=== PATIENT | female | born 1995 ===

== ENCOUNTER 2024-07-29 23:58 | Emergency (ER) | payer OTHER, SELFPAY ==
--- NOTE | ~2024-07-29 | CT_ITS ---
CT of the Abdomen and Pelvis: Indication: Abdominal pain Technique: 2.5 mm axial scans were obtained through the abdomen and pelvis following intravenous adm inistration of 100 cc of Omnipaque 350. Dose reduction technique was used on this scan by utilizing a utomated exposure control and iterative reconstruction technique. The dose-length product (DLP) was 1 90.48 mGy-cm. Findings: Scans through the lung bases are unremarkable. The liver, spleen, pancreas, gallbladder, adrenals and kidneys are within normal limits. No evidence of aortic aneurysm. No lymphadenopathy. No bowel obstruction or bowel wall thickening. There is no evidence to suggest acute appendicitis. Images through the pelvis were performed. Urinary bladder unremarkable. Probable small uterine fibroi d present. Trace free fluid present in the pelvis. Impression: No definite acute abnormality. Probable small uterine fibroid. Trace free fluid in the pelvis. Reviewed, dictated and finalized at [facility]. STANT MEDIA PLANNER Impression: No definite acute abnormality. Probable small uterine fibroid. Trace free fluid in the pelvis.
[2024-07-30] VITALS (11 sets, daily range): BP systolic 96–118; BP diastolic 70–82; PULSE 60–102; RESP 12–21; TEMP 36.6; O2SAT 97–100
--- NOTE | 2024-07-30 00:16 | ECG_ITS ---
Test Date: 2024-07-30 00:40:40 Measurements Intervals [place] Rate: 75 P: 55 TN: 162 QRS: 41 QRSD: 74 T: 19 QT: 347 QTc: 388 Interpretive Statements SINUS RHYTHM No previous ECG available for comparison Electronically Signed On 07-30-2024 18:08:22 PLANT BREEDER by Sadaf Vicente M.D.
--- NOTE | 2024-07-30 00:19 | ED_ITS ---
HPI - General Adult General Chief complaint: Unspecified <ABBY Diego Last Filed: 07/30/24 01:26> Stated complaint: chest pain <ABBY Diego Last Filed: 07/30/24 01:26> Time Seen by Provider: 07/30/24 00:11 <ABBY Diego Last Filed: 07/30/24 01:26> History of Present Illness HPI narrative: 28-year-old female with history of type 2 diabetes and remote history of presents to emergency department for epigastric and right upper quadrant abdominal pain that started at 11:30 p.m.. Patient states she began having severe pain her epigastrium. She followed up with her PCP the following day was prescribed for famotidine for presumed GERD/gastritis. She has been taking this as directed. For dinner last night she had spaghetti with red sauce, went to bed and woke up with significant pain to her epigastrium which prompted her to come to the ED. She took the famotidine without improvement. Reports nausea with associated vomiting. No fevers. Denies dysuria, hematuria, diarrhea. <ABBY Diego Last Filed: 07/30/24 01:26> Related Data Allergies/adverse reactions: Allergies Allergy/AdvReac Type Severity Reaction Status Date / Time No Known Allergies Allergy Verified 07/30/24 00:40 <ABBY Diego Last Filed: 07/30/24 01:26> Review of Systems 2 Review of Systems: All systems reviewed & are unremarkable except as noted in HPI and below <ABBY Diego Last Filed: 07/30/24 01:26> Exam 2 Narrative: GENERAL: well-nourished, and in no acute distress. Appears uncomfortable HEAD: Normocephalic, atraumatic. EYES: EOMI. ENT: Nares clear, no rhinorrhea or epistaxis. Mucous membranes moist. NECK: Supple. CHEST: Clear to auscultation. No respiratory distress. HEART: Regular rate and rhythm. No murmur heard. Normal peripheral pulses. ABDOMEN: Normoactive bowel sounds. Abdomen soft with tenderness in the epigastrium, tenderness and guarding in the right upper quadrant, positive Gutierres sign, no CVA tenderness EXTREMITIES: Normal range of motion. No edema. SKIN: Warm, dry, no rash. NEURO: No focal deficits. Alert and oriented x3 <Michelle Grady PA-C - Last Filed: 07/30/24 01:26> Course MERCHANDISING EXECUTION MANAGER/PA Physician Supervision For this patient encounter, I reviewed the MERCHANDISING EXECUTION MANAGER or PA documentation, treatment plan, and medical decision making and had [id number] time with this patient. I performed all aspects of the MDM as documented. <Rajesh Rob MD - Last Filed: 07/30/24 03:55> Vital Signs Vital signs: Vital Signs Temperature 97.9 F 07/30/24 00:03 Pulse Rate 102 H 07/30/24 00:03 Respiratory Rate 16 07/30/24 00:03 Blood Pressure 114/78 07/30/24 00:03 Pulse Oximetry 100 07/30/24 00:03 Oxygen Delivery Room Air 07/30/24 00:03 Temperature 97.9 F 07/30/24 00:03 Pulse Rate 102 H 07/30/24 00:03 Respiratory Rate 16 07/30/24 00:03 Blood Pressure 114/78 07/30/24 00:03 Pulse Oximetry 97 07/30/24 00:58 Oxygen Delivery Room Air 07/30/24 00:58 <Michelle Grady PA-C - Last Filed: 07/30/24 01:26> Vital Signs Temperature 97.9 F 07/30/24 00:03 Pulse Rate 102 H 07/30/24 00:03 Respiratory Rate 16 07/30/24 00:03 Blood Pressure 114/78 07/30/24 00:03 Pulse Oximetry 100 07/30/24 00:03 Oxygen Delivery Room Air 07/30/24 00:03 Temperature 97.9 F 07/30/24 00:03 Pulse Rate 102 H 07/30/24 00:03 Respiratory Rate 16 07/30/24 00:03 Blood Pressure 114/78 07/30/24 00:03 Pulse Oximetry 97 07/30/24 00:58 Oxygen Delivery Room Air 07/30/24 00:58 <Rajesh Rob MD - Last Filed: 07/30/24 03:55> Medical Decision Making [facility] Narrative Medical decision making narrative: 28-year-old female with history of type 2 diabetes presents to the emergency department for epigastric/right upper quadrant abdominal pain intermittently for the past few days, worsening this evening after eating spaghetti with red sauce for dinner. Triage vitals with mild tachycardia 102, otherwise unremarkable. Patient does appear uncomfortable on exam, clenching her epigastrium. She has tenderness to epigastrium but more notably over the right upper quadrant with positive Gutierres sign. EKG shows normal sinus rhythm with a rate of 75 ppm, normal MO interval, normal QRS duration, normal QTC, no ischemic changes. CBC without leukocytosis or anemia. Chemistries remarkable for transaminitis with an AST of 291, ALT of 462, alk-phos of 141. Bilirubin normal. Lipase normal. Patient received IV fluids, Protonix, Zofran, GI cocktail and morphine with improvement. Pending CT abdomen pelvis at time of sign-out to Dr. Rob. < Michelle Grady PA-C - Last Filed: 07/30/24 01:26> 28-year-old female with history of type 2 diabetes presents to the emergency department for epigastric/right upper quadrant abdominal pain intermittently for the past few days, worsening this evening after eating spaghetti with red sauce for dinner. Triage vitals with mild tachycardia 102, otherwise unremarkable. Patient does appear uncomfortable on exam, clenching her epigastrium. She has tenderness to epigastrium but more notably over the right upper quadrant with positive Gutierres sign. EKG shows normal sinus rhythm with a rate of 75 ppm, normal MO interval, normal QRS duration, normal QTC, no ischemic changes. CBC without leukocytosis or anemia. Chemistries remarkable for transaminitis with an AST of 291, ALT of 462, alk-phos of 141. Bilirubin normal. Lipase normal. Patient received IV fluids, Protonix, Zofran, GI cocktail and morphine with improvement. Pending CT abdomen pelvis at time of sign-out to Dr. Rob. Darron: Patient was signed out to me pending CT abdomen and pelvis. CT was obtained and independently interpreted by me revealing uterine fibroids, right ovarian cyst measuring 1.2 cm, otherwise no acute process. Patient was informed of these findings at bedside. Patient was also informed of her transaminitis and that her symptoms are likely secondary to biliary colic. Patient states that she has been having the symptoms on and off since and she did see her primary care physician who instructed her on maintaining a low-fat diet. Patient states that when she was watching her diet her symptoms have completely resolved but yesterday she accidentally ate spaghetti which precipitated her symptoms. She was instructed that she will need to follow-up with general surgery and may need to have a gallbladder ultrasound performed as an outpatient and patient is agreeable with this plan. She was also provided with strict return precautions instructed to return to the emergency department if any new or worsening symptoms develop. She was discharged in stable condition. <Rajesh Rob MD - Last Filed: 07/30/24 03:55> Vital Signs Vital Signs: Vital Signs Temperature 97.9 F 07/30/24 00:03 Pulse Rate 102 H 07/30/24 00:03 Respiratory Rate 16 07/30/24 00:03 Blood Pressure 114/78 07/30/24 00:03 Pulse Oximetry 100 07/30/24 00:03 Oxygen Delivery Room Air 07/30/24 00:03 Temperature 97.9 F 07/30/24 00:03 Pulse Rate 102 H 07/30/24 00:03 Respiratory Rate 16 07/30/24 00:03 Blood Pressure 114/78 07/30/24 00:03 Pulse Oximetry 97 07/30/24 00:58 Oxygen Delivery Room Air 07/30/24 00:58 <Michelle Grady PA-C - Last Filed: 07/30/24 01:26> Vital Signs Temperature 97.9 F 07/30/24 00:03 Pulse Rate 102 H 07/30/24 00:03 Respiratory Rate 16 07/30/24 00:03 Blood Pressure 114/78 07/30/24 00:03 Pulse Oximetry 100 07/30/24 00:03 Oxygen Delivery Room Air 07/30/24 00:03 Temperature 97.9 F 07/30/24 00:03 Pulse Rate 102 H 07/30/24 00:03 Respiratory Rate 16 07/30/24 00:03 Blood Pressure 114/78 07/30/24 00:03 Pulse Oximetry 97 07/30/24 00:58 Oxygen Delivery Room Air 07/30/24 00:58 <Rajesh Rob MD - Last Filed: 07/30/24 03:55> Lab Data Result diagrams: 07/30/24 00:43 07/30/24 00:43 <Michelle Grady PA-C - Last Filed: 07/30/24 01:26> Labs: Lab Results 07/30/24 07/30/24 07/30/24 Range/Units 00:43 02:17 02:25 WBC 6.3 (4.5-10.0) K/mm3 RBC 4.71 (4.2-5.4) M/mm3 Hgb 14.0 (12.0-15.0) g/dL Hct 41.6 (37.0-47.0) % MCV 88.3 (80-100) fl MCH 29.7 (26-34) pg MCHC 33.7 (32-36) g/dl RDW 12.6 (11.5-14.5) % Plt Count 206 (150-375) k/mm3 MPV 8.7 (7.4-10.4) fl Immature Gran % (Auto) 0.5 (0-0.5) % Neut % (Auto) 71.2 (45.5-73.1) % Lymph % (Auto) 20.8 (18.3-44.2) % [place] % (Auto) 6.5 (2.6-8.5) % Eos % (Auto) 0.8 (0-4.4) % Baso % (Auto) 0.2 (0.2-1.2) % Lymph # (Auto) 1.31 (0.9-3.2) K/mm3 [place] # (Auto) 0.4 (0.1-0.6) K/mm3 Eos # (Auto) 0.1 (0-0.3) K/mm3 Baso # (Auto) 0.0 (0.0-0.1) K/mm3 Abs Immat Gran (auto) 0.03 (0.00-0.031) K/mm3 Absolute Neuts (auto) 4.5 (1.3-6.7) K/mm3 Absolute Nucleated RBC 0.000 (0.0-0.012) K/mm3 Nucleated RBC % 0.0 (0.0-0.2) % Sodium 138 (137-145) mmol/L Potassium 3.4 (3.4-5.0) mmol/L Chloride 103 (98-107) mmol/L Carbon Dioxide 24 (22-30) mmol/L Anion Gap 11 (4-12) mmol/L BUN 5 L (7-17) mg/dL Creatinine 0.56 L (0.7-1.0) mg/dL Estim Creat Clear Calc Not Reportable Estimated GFR > 60 (59 - ) Glucose 125 H (65-110) mg/dL Calcium 8.7 (8.4-10.2) mg/dL Total Bilirubin 1.3 (0.2-1.3) mg/dL AST 291 H (14-36) U/L ALT 462 H (6-35) U/L Alkaline Phosphatase 141 H (38-126) U/L Total Protein 7.0 (6.3-8.2) g/dL Albumin 4.0 (3.5-5.1) g/dL Lipase 115 (23-300) U/L Urine Color Pending Urine Appearance Pending Urine pH Pending Ur Specific [place] Pending Urine Protein Pending Urine Glucose (UA) Pending Urine Ketones Pending Ur Blood (Man) Pending Urine Nitrate Pending Urine Bilirubin Pending Urine Urobilinogen Pending Leukocyte Esterase Rfl Pending POC Urine HCG, Qual Negative (Negative) <Michelle Grady PA-C - Last Filed: 07/30/24 01:26> Lab Results 07/30/24 07/30/24 07/30/24 Range/Units 00:43 02:17 02:25 WBC 6.3 (4.5-10.0) K/mm3 RBC 4.71 (4.2-5.4) M/mm3 Hgb 14.0 (12.0-15.0) g/dL Hct 41.6 (37.0-47.0) % MCV 88.3 (80-100) fl MCH 29.7 (26-34) pg MCHC 33.7 (32-36) g/dl RDW 12.6 (11.5-14.5) % Plt Count 206 (150-375) k/mm3 MPV 8.7 (7.4-10.4) fl Immature Gran % (Auto) 0.5 (0-0.5) % Neut % (Auto) 71.2 (45.5-73.1) % Lymph % (Auto) 20.8 (18.3-44.2) % [place] % (Auto) 6.5 (2.6-8.5) % Eos % (Auto) 0.8 (0-4.4) % Baso % (Auto) 0.2 (0.2-1.2) % Lymph # (Auto) 1.31 (0.9-3.2) K/mm3 [place] # (Auto) 0.4 (0.1-0.6) K/mm3 Eos # (Auto) 0.1 (0-0.3) K/mm3 Baso # (Auto) 0.0 (0.0-0.1) K/mm3 Abs Immat Gran (auto) 0.03 (0.00-0.031) K/mm3 Absolute Neuts (auto) 4.5 (1.3-6.7) K/mm3 Absolute Nucleated RBC 0.000 (0.0-0.012) K/mm3 Nucleated RBC % 0.0 (0.0-0.2) % Sodium 138 (137-145) mmol/L Potassium 3.4 (3.4-5.0) mmol/L Chloride 103 (98-107) mmol/L Carbon Dioxide 24 (22-30) mmol/L Anion Gap 11 (4-12) mmol/L BUN 5 L (7-17) mg/dL Creatinine 0.56 L (0.7-1.0) mg/dL Estim Creat Clear Calc Not Reportable Estimated GFR > 60 (59 - ) Glucose 125 H (65-110) mg/dL Calcium 8.7 (8.4-10.2) mg/dL Total Bilirubin 1.3 (0.2-1.3) mg/dL AST 291 H (14-36) U/L ALT 462 H (6-35) U/L Alkaline Phosphatase 141 H (38-126) U/L Total Protein 7.0 (6.3-8.2) g/dL Albumin 4.0 (3.5-5.1) g/dL Lipase 115 (23-300) U/L Urine Color Pending Urine Appearance Pending Urine pH Pending Ur Specific [place] Pending Urine Protein Pending Urine Glucose (UA) Pending Urine Ketones Pending Ur Blood (Man) Pending Urine Nitrate Pending Urine Bilirubin Pending Urine Urobilinogen Pending Leukocyte Esterase Rfl Pending POC Urine HCG, Qual Negative (Negative) <Rajesh Rob MD - Last Filed: 07/30/24 03:55> Discharge Plan Discharge Clinical Impression: Biliary colic, Transaminitis <Michelle Grady PA-C - Last Filed: 07/30/24 01:26> Patient Disposition: Home, Self-Care <Michelle Grady PA-C - Last Filed: 07/30/24 01:26> Condition: Improved <Michelle Grady PA-C - Last Filed: 07/30/24 01:26> Instructions: Antibiotic Form, Biliary Colic (ED), Transaminitis (ED) <Michelle Grady PA-C - Last Filed: 07/30/24 01:26> Additional Instructions: Please follow-up with the general surgeon you were provided with today. Your symptoms are likely secondary to gallstones. You were instructed to maintain a low-fat diet to help with your symptoms until you follow-up with general surgery. Return to the emergency department if any new or worsening symptoms develop. <Michelle Grady PA-C - Last Filed: 07/30/24 01:26> Patient Language: Paraguayan <Michelle Grady PA-C - Last Filed: 07/30/24 01:26> Follow-up/Referrals: PHYSICIAN NOT ON STAFF,NONSTAFF [Primary Care Provider] - Darshan Mitchell MD [Physician] - 3 Days <Michelle Grady PA-C - Last Filed: 07/30/24 01:26> Time of Disposition: 03:52 <Michelle Grady PA-C - Last Filed: 07/30/24 01:26> 03:52 <Rajesh Rob MD - Last Filed: 07/30/24 03:55>
[2024-07-30] MEDS: BELLADONNA ALK/PHENOB ELIX 10 ML, MAG HYDROX/ALUMINUM HYD/SIMETH 30 ML, LIDOCAINE 2% VI... PO (00:41)
[2024-07-30] MEDS: SODIUM CHLORIDE 0.9% IV 1,000 ML 999 ML IV CONT (00:41)
[2024-07-30] MEDS: ONDANSETRON INJ 4 MG/2 ML VIAL IV PUSH (00:42)
[2024-07-30] MEDS: PANTOPRAZOLE SODIUM IV 40 MG VIAL IV PUSH (00:42)
[2024-07-30 00:56] LABS: Basophils Percent Auto 0.2 % (0.2-1.2); Eosinophils Absolute Auto 0.1 K/mm3 (0-0.3); Eosinophils Percent Auto 0.8 % (0-4.4); Hematocrit 41.6 % (37.0-47.0); Immature Granulocyte Absolute 0.03 K/mm3 (0.00-0.031); Immature Granulocyte Percent A 0.5 % (0-0.5); Lymphocytes Absolute Auto 1.31 K/mm3 (0.9-3.2); Lymphocytes Percent Auto 20.8 % (18.3-44.2); Mean Corpuscular HGB Conc 33.7 g/dl (32-36); Mean Corpuscular Hemoglobin 29.7 pg (26-34); Mean Corpuscular Volume 88.3 fl (80-100); Mean Platelet Volume 8.7 fl (7.4-10.4); Monocytes Absolute Auto 0.4 K/mm3 (0.1-0.6); Monocytes Percent Auto 6.5 % (2.6-8.5); Neutrophils Absolute Auto 4.5 K/mm3 (1.3-6.7); Neutrophils Percent Auto 71.2 % (45.5-73.1); Platelet Count Result 206 k/mm3 (150-375); Red Blood Count 4.71 M/mm3 (4.2-5.4); Red Cell Distribution Width 12.6 % (11.5-14.5); White Blood Count 6.3 K/mm3 (4.5-10.0)
--- NOTE | 2024-07-30 01:01 | PC.NURSE ---
ERP notified of patients continued pain. Orders being placed.
[2024-07-30] MEDS: MORPHINE SULFATE (*CRX) 4 MG/ML INJ IV PUSH (01:04)
[2024-07-30 01:13] LABS: Alanine Aminotransferase 462 U/L (6-35); Alkaline Phosphatase 141 U/L (38-126); Anion Gap 11 mmol/L (4-12); Aspartate Amino Transferase 291 U/L (14-36); Bilirubin,Total 1.3 mg/dL (0.2-1.3); Blood Urea Nitrogen 5 mg/dL (7-17); Calcium 8.7 mg/dL (8.4-10.2); Carbon Dioxide 24 mmol/L (22-30); Chloride 103 mmol/L (98-107); Estimated Glomerular Filt Rate > 60; Glucose 125 mg/dL (65-110); Lipase 115 U/L (23-300); Potassium 3.4 mmol/L (3.4-5.0); Sodium 138 mmol/L (137-145)
[2024-07-30 02:27] LABS: BEDSIDEPREGUCG Negative (Negative)
[2024-07-30 02:32] LABS: Add Urine Microscopic? YES; Appearance Urine Clear (Clear); Bilirubin Urine Negative (Negative); Blood Urine Negative (Negative); Color Urine Dark Yellow (Yellow); Glucose Urine UA Negative (Negative); Ketones Urine 2+ mg/dL (Negative); Leukocyte Esterase Ur Negative LEU/UL (Negative); Nitrate Urine Negative (Negative); Protein Urine Negative (Negative); Specific Grav Ur 1.016 (1.001-1.035)
--- NOTE | 2024-07-30 03:03 | PC.NURSE ---
Pt asking for water. Provided pt with toothette and small amt of water to dip in. Explained wait times for CT results and reasons behind NPO. Pt verbalized understanding. Provided blanket per request for visitor who is sleeping on the floor.
== END 2024-07-30 04:12 | disposition home or self-care (01) ==
PROVIDERS: Physician Assistant; Emergency Provider Emergency Medicine
DX: K80.50 Calculus of bile duct without cholangitis or cholecystitis without obstruction (principal); R74.01 Elevation of levels of liver transaminase levels; E11.9 Type 2 diabetes mellitus without complications
CPT/HCPCS: 36415; 74177; 80053; 81001; 81025; 83690; 85025; 93005; 96361; 96374; 96375; 99284; A9270; J2270; J2405; J2470; J7030; Q9967

== ENCOUNTER 2024-08-19 23:35 | Observation (INO) | payer OTHER, SELFPAY ==
--- NOTE | ~2024-08-19 | MR_ITS ---
EXAMINATION: MR MRCP wo/w con/w 3D wo ind DATE: 08/21/2024 13:17 INDICATION: Choledocholithiasis. TECHNIQUE: Magnetic resonance imaging (MRI) of the abdomen was performed without and with 10 mL Multi Glo intravenous contrast. Sequences included coronal T2-weighted FS FSE, coronal T2-weighted FSE, a xial T1-weighted LAVA, coronal FS FIESTA, axial dual-echo T1-weighted SPGR, coronal lava-FLEX, sagitt al T2-weighted FSE, axial T2-weighted FSE, and axial DWI. Thick-slab T2-weighted FSE images were obta ined for magnetic resonance cholangiopancreatography (MRCP). Maximum intensity projection 3-D reconst ructions of the volumetric data were created by the technologist. Postcontrast sequences included cor onal LAVA-flex and time course of axial T1-weighted LAVA. COMPARISON: Ultrasound 08/20/2024, CT 08/20/2024 FINDINGS: ABDOMEN MRI: The liver is normal. There are gallstones in the gallbladder, which is normal in size. G allbladder wall thickening is noted. The spleen, pancreas, adrenal glands, and kidneys are normal. Th ere are no dilated loops of bowel. There are no pathologically enlarged lymph nodes. There is no free intraperitoneal fluid. ABDOMEN MRCP: The common duct is normal and measures 5 mm. IMPRESSION: 1. Cholelithiasis. Gallbladder wall thickening may be seen with acute or chronic cholecystitis. 2. Normal common duct. No choledocholithiasis. Reviewed, dictated and finalized at location A. E BUYER IMPRESSION: 1. Cholelithiasis. Gallbladder wall thickening may be seen with acute or chroni c cholecystitis. 2. Normal common duct. No choledocholithiasis.
--- NOTE | ~2024-08-19 | US_ITS ---
EXAMINATION: US abdomen limited DATE: 08/20/2024 10:50 INDICATION: Acute cholecystitis. TECHNIQUE: Multiple grayscale and Doppler ultrasound images of the abdomen were obtained. COMPARISON: CT abdomen and pelvis 08/20/2024 FINDINGS: The visualized portions of the head, body, and tail of the pancreas are normal. The liver i s normal without focal lesion. There is normal flow in main portal vein. The gallbladder is normal in size and contains stones. No gallbladder wall thickening. There is a sonographic Gutierres sign. The co mmon duct is dilated to 7 mm. IMPRESSION: 1. Cholelithiasis and positive sonographic Gutierres sign, but no gallbladder distention or gallbladder wall thickening to suggest acute cholecystitis. 2. Mildly dilated common duct. Reviewed, dictated and finalized at location A. CH ANALYST IMPRESSION: 1. Cholelithiasis and positive sonographic Gutierres sign, but no gallbladder dist ention or gallbladder wall thickening to suggest acute cholecystitis. 2. Mildly dilated common duct.
--- NOTE | ~2024-08-19 | CT_ITS ---
CT of the Abdomen and Pelvis: Indication: Abdominal pain Technique: 2.5 mm axial scans were obtained through the abdomen and pelvis following intravenous adm inistration of 100 cc of Omnipaque 350. Dose reduction technique was used on this scan by utilizing a utomated exposure control and iterative reconstruction technique. The dose-length product (DLP) was 1 78.55 mGy-cm. COMPARISON: 07/30/2024 Findings: Scans through the lung bases are unremarkable. The liver, spleen, pancreas, adrenals and kidneys are within normal limits. Gallbladder is distended with possible mild wall thickening. No evidence of aortic aneurysm. No lymphadenopathy. No bowel obstruction or bowel wall thickening. There is no evidence to suggest acute appendicitis. Images through the pelvis were performed. Urinary bladder unremarkable. No pelvic mass seen. No ascit es. Impression: Distended gallbladder with probable mild wall thickening. Acute cholecystitis is a consideration. Cor relate clinically. Consider ultrasound and/or HIDA scan for further evaluation as indicated. Reviewed, dictated and finalized at location . SS ENGINEER Impression: Distended gallbladder with probable mild wall thickening. Acute cholecystitis i s a consideration. Correlate clinically. Consider ultrasound and/or HIDA scan f or further evaluation as indicated.
--- OUTSIDE RECORDS SUMMARY | 2024-08-19 23:37 | XMS_ITS | Encounter Summary ---
Author Organization [facility] Address [address] [place] [address] Care Team Providers Care Cold Roller Name Role Phone Saskia Cottrell DO Primary Care Provider [phone] Encounter Details Date Type Department Care Team (Late st Contact Info) Description 08/10/2023 PrizeBox™ Message Enc [facility] Family Medicine - [place] [address], [address] [place] [phone] Saskia Cottrell DO [address] [place] [address] Lab Results Social History Tobacco Use Types Packs/Day Years Used Date Smoking Tobacco: Former Cigarettes Smokeless Tobacco: Never Comments:Not ready to quit Alcohol Use Standard Drinks/Week Comments Not Currently 0 (1 standard drink = 0.6 oz pur e alcohol) Humiliation, Afraid, Rape, and Kick questionnair e Answer Date Recorded Within the last year, have y ou been afraid of your partner or ex-partner? No 08/13/2022 Within the last year, have y ou been humiliated or emotionally abused in other ways by your partner or ex-partner? No Within the last year, have y ou been kicked, hit, slapped, or otherwise physically hurt by your partner or ex-partner? No 08/13/2022 Within the last year, have y ou been raped or forced to have any kind of sexual activity by your partner or ex-partner? No 08/13/2022 Social Connection and Isolat ion Panel [NHANES] Answer Date Recorded Frequency of Communication w ith Friends and Family Not on file 08/12/2022 How often do you get togethe r with friends or relatives? More than three times a week 08/12/2022 How often do you attend chur ch or mandaen services? Never 08/12/2022 Active Member of Clubs or Organizations Not on f ile 08/12/2022 Attends Club or Organization Meetings Not on giuliana e 08/12/2022 Marital Status Not on file 08/12/2022 AUDIT-C Answer Date Recorded Q1: How often do you have a drink containing alc ohol? Never 08/12/2022 Q2: How many drinks containi ng alcohol do you have on a typical day when you are drinking? 1 or 2 08/12/2022 Q3: How often do you have six or more drinks on one occasion? Never 08/12/2022 Overall Financial Resource Strain (CARDIA) Answe r Date Recorded How hard is it for you to pa y for the very basics like food, housing, medical care, and heating? Not hard at all 08/13/2022 PHQ-2 Answer Date Recorded Patient Health Questionnaire-2 Score 2 09/23/2022 [facility] of Occupat ional Health - Occupational Stress Questionnaire Answer Date Recorded Do you feel stress - tense, restless, nervous, or anxious, or unable to sleep at night because your mind is troubled all the time - these days? Only a little 08/12/2022 Hunger Vital Sign Answer Date Recorded Within the past 12 months, y ou worried that your food would run out before you got the money to buy more. Never true 08/13/19 23 Within the past 12 months, t he food you bought just didn't last and you didn't have money to get more. Never true 08/13/2022 PRAPARE - Transportation Answer Date Re corded In the past 12 months, has l ack of transportation kept you from medical appointments or from getting medications? No 09/2022 In the past 12 months, has l ack of transportation kept you from meetings, work, or from getting things needed for daily living? No 08/13/2022 Housing Stability Vital Sign Answer Jono e Recorded In the last 12 months, was t here a time when you were not able to pay the mortgage or rent on time? No 08/13/2022 In the last 12 months, how many places have you lived? 1 08/13/2022 In the last 12 months, was t here a time when you did not have a steady place to sleep or slept in a mcfp (including now)? No 08/13/2022 Depression Answer Date Recor ded Last EPDS Total Score 3 08/14/2022 Last EPDS Self Harm Result Often 08/14 Comments No Sex and Gender Information Value Date Recorded Sex Assigned at Not on file Legal Sex Female 2:38 PM CDT Gender Identity Female 12/28/2021 2:46 PM CDT Sexual Orientation Not on file documented as of this encounter Functional Status * RETIRED Are you deaf or do you have serious difficulty hearing Answer Date of Assessment Author Status No 08/12/2022 8:45 PM BRICKMASON HELPER Activ e * RETIRED Are you blind or do you have serious difficulty seeing, even when wearing glasses? Answer Date of Assessment Author Status No 08/12/2022 8:45 PM BRICKMASON HELPER Activ e * Do you have serious difficulty walking or climbing stairs? Answer Date of Assessment Author Status No 08/12/2022 8:45 PM BRICKMASON HELPER Karo Ortega R N Active * Do you have difficulty dressing or bathing? Answer Date of Assessment Author Status No 08/12/2022 8:45 PM Karo Das R N Active * Because of a physical, mental, or emotional condition, do you have difficulty doing errands alone such as visiting a doctor's office or shopping? Answer Date of Assessment Author Status No 08/12/2022 8:45 PM Karo Das R N Active documented as of this encounter Mental Status * Because of a physical, mental, or emotional condition, do you have serious difficulty concentrating, remembering, or making decisions? Answer Entry Date Author Status No 08/12/2022 8:45 PM Karo Das R N Active documented in this encounter Plan of Treatment Not on file documented as of this encounter Visit Diagnoses Not on filedocumented in this encounter Additional Health Concerns Assessment Noted Time PHQ-9 Depression Total Score: 11 023 4:39 PM CDT documented as of this encounter Care Teams Cold Roller Relationship Specialty Start Date End Date Saskia Cottrell DO [address] [place] [address] PCP - General FAMILY PRACTICE 08/10/21 documented as of this encounter
--- OUTSIDE RECORDS SUMMARY | 2024-08-19 23:37 | XMS_ITS | Encounter Summary ---
Author Organization [facility] Address [address] [place] [address] Care Team Providers Care Asphalt Plant Worker Name Role Phone Saskia Cottrell DO Primary Care Provider [phone] Encounter Details Date Type Department Care Team (Late Contact Info) Description 05/31/2024 SimuForm Message Enc [facility] Family Medicine - [place] [address] [place] [phone] Saskia Cottrell DO [address] [place] [address] Light headedness Social History Tobacco Use Types Packs/Day Years Used Date Smoking Tobacco: Former Cigarettes Passive Smoke Exposure: Past Smokeless Tobacco: Never Alcohol Use Standard Drinks/Week Comments Not Currently [...] 08/12/2022 How often do you attend chur or mu-ism services? Never 08/12/2022 Active Member of Clubs [...] Answer Date Recorded Patient Health Questionnaire-2 Score 0 08/16/2023 [facility] of Occupat ional Health - Occupational Stress [...] place to sleep or slept in a fdc (including now)? No 08/13/2022 Depression Answer Date [...] Assessment Author Status No 08/12/2022 8:45 PM HEAT PUMP INSTALLER Activ e * RETIRED Are you blind or do you have serious difficulty seeing, even when wearing glasses? Answer Date of Assessment Author Status No 08/12/2022 8:45 PM HEAT PUMP INSTALLER Activ e * Do you have serious difficulty walking or climbing stairs? Answer Date of Assessment Author Status No 08/12/2022 8:45 PM HEAT PUMP INSTALLER Karo Ortega R N Active * Do [...] documented as of this encounter Care Teams Asphalt Plant Worker Relationship Specialty Start Date End Date Saskia Cottrell DO [address] [place] [address] PCP - General FAMILY PRACTICE 08/10/21 documented as of this encounter
--- OUTSIDE RECORDS SUMMARY | 2024-08-19 23:37 | XMS_ITS | Encounter Summary ---
Author Organization [facility] Address [address] [place] [address] Care Team Providers Care Rn Transitional Name Role Phone Saskia Cottrell DO Primary Care Provider [phone] Encounter Details Date Type Department Care Team (Late st Contact Info) Description 08/17/2023 Powerlyticst Message Enc [facility] Family Medicine - [place] [address] [place] [phone] Saskia Cottrell DO [address] [place] [address] Supplement & Medication Social History Tobacco Use Types Packs/Day Years [...] often do you attend chur ch or oriental orthodox services? Never 08/12/2022 Active Member of Clubs [...] Recorded Patient Health Questionnaire-2 Score 0 08/16/2023 [facility] of Occupat ional Health - Occupational Stress [...] place to sleep or slept in a fpc (including now)? No 08/13/2022 Depression Answer Date [...] Assessment Author Status No 08/12/2022 8:45 PM TYPESETTING MACHINE OPERATOR/TENDER Activ e * RETIRED Are you blind or do you have serious difficulty seeing, even when wearing glasses? Answer Date of Assessment Author Status No 08/12/2022 8:45 PM TYPESETTING MACHINE OPERATOR/TENDER Activ e * Do you have serious difficulty walking or climbing stairs? Answer Date of Assessment Author Status No 08/12/2022 8:45 PM TYPESETTING MACHINE OPERATOR/TENDER Karo Ortega R N Active * Do [...] documented as of this encounter Care Teams Rn Transitional Relationship Specialty Start Date End Date Saskia Cottrell DO [address] [place] [address] PCP - General FAMILY PRACTICE 08/10/21 documented as of this encounter
--- OUTSIDE RECORDS SUMMARY | 2024-08-19 23:37 | XMS_ITS | Encounter Summary ---
Author Organization [facility] Address [address] [place] [address] Care Team Providers Care Radiation Oncology Manager Name Role Phone Saskia Cottrell DO Primary Care Provider [phone] Encounter Details Date Type Department Care Team (Late st Contact Info) Description 02/02/2024 Axedat Message Enc [facility] Medical Group Family Medicine - [place] [address] [place] [address] Saskia Cottrell DO [address] [place] [address] Sick Social History Tobacco Use Types Packs/Day Years [...] often do you attend chur ch or jew services? Never 08/12/2022 Active Member of Clubs [...] Recorded Patient Health Questionnaire-2 Score 0 08/16/2023 [facility] of Occupat ional Health - Occupational Stress [...] place to sleep or slept in a snf (including now)? No 08/13/2022 Depression Answer Date [...] Assessment Author Status No 08/12/2022 8:45 PM UPHOLSTERER LIMOUSINE AND HEARSE Activ e * RETIRED Are you blind or do you have serious difficulty seeing, even when wearing glasses? Answer Date of Assessment Author Status No 08/12/2022 8:45 PM UPHOLSTERER LIMOUSINE AND HEARSE Activ e * Do you have serious difficulty walking or climbing stairs? Answer Date of Assessment Author Status No 08/12/2022 8:45 PM UPHOLSTERER LIMOUSINE AND HEARSE Karo Ortega R N Active * Do you have difficulty dressing or bathing? Answer Date of Assessment Author Status No 08/12/2022 8:45 PM UPHOLSTERER LIMOUSINE AND HEARSE Karo Ortega R N Active * Because of a physical, mental, or emotional condition, do you have difficulty doing errands alone such as visiting a doctor's office or shopping? Answer Date of Assessment Author Status No 08/12/2022 8:45 PM UPHOLSTERER LIMOUSINE AND HEARSE Karo Ortega R N Active documented as of this encounter Mental Status * Because of a physical, mental, or emotional condition, do you have serious difficulty concentrating, remembering, or making decisions? Answer Entry Date Author Status No 08/12/2022 8:45 PM UPHOLSTERER LIMOUSINE AND HEARSE Karo Ortega R N Active documented in this encounter Progress Notes * Saskia Cottrell, - 02/02/2024 4:29 PM CDT So it is possible it could be Covid flu or strep She should probably be seen but may need to go to documented in this encounter Plan of Treatment Not on file documented as of this encounter Visit Diagnoses Not on filedocumented in this encounter Additional Health Concerns Assessment Noted Time PHQ-9 Depression Total Score: 11 09/23/ 023 4:39 PM CDT documented as of this encounter Care Teams Radiation Oncology Manager Relationship Specialty Start Date End Date Saskia Cottrell DO [address] [place] [address] PCP - General FAMILY PRACTICE 08/10/21 documented as of this encounter
--- OUTSIDE RECORDS SUMMARY | 2024-08-19 23:37 | XMS_ITS | Encounter Summary ---
Author Organization [facility] Address [address] [place] [address] Care Team Providers Care Media Job Titles Name Role Phone Saskia Cottrell DO Primary Care Provider [phone] Encounter Details Date Type Department Care Team (Late st Contact Info) Description 01/04/2024 M-SIXt Message Enc [facility] Medical Group Family Medicine - [place] [address], [address] [place] [phone] Saskia Cottrell DO [address] [place] [address] Abdominal Pain Social History Tobacco Use Types Packs/Day Years [...] often do you attend chur ch or taoist services? Never 08/12/2022 Active Member of Clubs [...] Recorded Patient Health Questionnaire-2 Score 0 08/16/2023 [facility] of Occupat ional Health - Occupational Stress [...] place to sleep or slept in a long term (including now)? No 08/13/2022 Depression Answer Date [...] Assessment Author Status No 08/12/2022 8:45 PM UTILITY TRACTOR OPERATOR Activ e * RETIRED Are you blind or do you have serious difficulty seeing, even when wearing glasses? Answer Date of Assessment Author Status No 08/12/2022 8:45 PM UTILITY TRACTOR OPERATOR Activ e * Do you have serious difficulty walking or climbing stairs? Answer Date of Assessment Author Status No 08/12/2022 8:45 PM Karo Das R N Active * Do you have [...] Status No 08/12/2022 8:45 PM Karo Das RN Active documented in this encounter Plan of Treatment Not on file documented as of this encounter Visit Diagnoses Not on filedocumented in this encounter Additional Health Concerns Assessment Noted Time PHQ-9 Depression Total Score: 11 023 4:39 PM CDT documented as of this encounter Care Teams Media Job Titles Relationship Specialty Start Date End Date Saskia Cottrell DO [address] [place] [address] PCP - General FAMILY PRACTICE 08/10/21 documented as of this encounter
--- OUTSIDE RECORDS SUMMARY | 2024-08-19 23:37 | XMS_ITS | Encounter Summary ---
Author Organization [facility] Address [address] [place] [address] Care Team Providers Care Biomedical Engineering Internship Name Role Phone Saskia Cottrell DO Primary Care Provider [phone] Encounter Details Date Type Department Care Team (Late st Contact Info) Description 01/09/2024 Mobile Captaint Message Enc [facility] Medical Group Family Medicine - [place] [address] [place] [phone] Saskia Cottrell DO [address] [place] [address] [place] Diaper Rash Social History Tobacco Use Types Packs/Day Years [...] How often do you attend chur or jew services? Never 08/12/2022 Active Member [...] Recorded Patient Health Questionnaire-2 Score 0 08/16/2023 [facility] of Occupat ional Health - [...] place to sleep or slept in a senior care (including now)? No 08/13/2022 Depression Answer Date [...] Assessment Author Status No 08/12/2022 8:45 PM GAS METER READER Activ e * RETIRED Are you blind or do you have serious difficulty seeing, even when wearing glasses? Answer Date of Assessment Author Status No 08/12/2022 8:45 PM GAS METER READER Activ e * Do you have serious difficulty walking or climbing stairs? Answer Date of Assessment Author Status No 08/12/2022 8:45 PM GAS METER READER Karo Ortega R N Active * Do [...] documented in this encounter Progress Notes * July Shahid MA - 01/09/2024 4:25 PM CDTFrom: Stefani Farfan To: Dr. Saskia Cottrell Sent: 01/09/2024 4:19 PM CDT Subject: Cheryl's Diaper Rash Dr Ronit Gallardo. Cheryl's been having a diaper rash, AGAIN. I'm not sure why she keeps getting them. We never forget to use diaper cream every time we change her and we make sure to change her diaperfrequently (4-6x a day). But she is always outside so maybe it's from the sweat and heat. Should wejust start havi ng her be naked whenever she's playing outside? Or would that make the rash worse from the dirt and stuff? Cos she does sit on the grass and mulch too. Could we get the diaper cream you prescribed last time too? You could send it over to the [facility] in [address] [place] [address] Thank you documented in this encounter Plan of Treatment Not on file documented as of this encounter Visit Diagnoses Not on filedocumented in this encounter Additional Health Concerns Assessment Noted Time PHQ-9 Depression Total Score: 11 023 4:39 PM CDT documented as of this encounter Care Teams Biomedical Engineering Internship Relationship Specialty Start Date End Date Saskia Cottrell DO [address] [place] [address] PCP - General FAMILY PRACTICE 08/10/21 documented as of this encounter
--- OUTSIDE RECORDS SUMMARY | 2024-08-19 23:37 | XMS_ITS | Encounter Summary ---
Author Organization [facility] Address [address] [place] [address] Care Team Providers Care Dairy Technician Name Role Phone Saskia Cottrell DO Primary Care Provider [phone] Encounter Details Date Type Department Care Team (Late Contact Info) Description 06/17/2023 VPIsystems Message Enc [facility] Medical Group Family Medicine - [place] [address] [place] [phone] Saskia Cottrell DO [address] [place] [address] Estrogen Test Social History Tobacco Use Types Packs/Day Years [...] often do you attend chur ch or yazdanism services? Never 08/12/2022 Active Member of Clubs [...] Recorded Patient Health Questionnaire-2 Score 2 09/23/2022 [facility] of Occupat ional Health - Occupational Stress [...] place to sleep or slept in a fci (including now)? No 08/13/2022 Depression Answer Date [...] Assessment Author Status No 08/12/2022 8:45 PM HIDE CURER Activ e * RETIRED Are you blind or do you have serious difficulty seeing, even when wearing glasses? Answer Date of Assessment Author Status No 08/12/2022 8:45 PM HIDE CURER Activ e * Do you have serious difficulty walking or climbing stairs? Answer Date of Assessment Author Status No 08/12/2022 8:45 PM HIDE CURER Karo Ortega R N Active * Do [...] documented as of this encounter Care Teams Dairy Technician Relationship Specialty Start Date End Date Saskia Cottrell DO [address] [place] [address] PCP - General FAMILY PRACTICE 08/10/21 documented as of this encounter
--- OUTSIDE RECORDS SUMMARY | 2024-08-19 23:37 | XMS_ITS | Clinical Summary ---
Author Organization [facility] Address [address] [place] [address] Care Team Providers Care Pad Machine Feeder Name Role Phone Saskia Cottrell DO Primary Care Provider [phone] Allergies Active Allergy Reactions Criticality Noted Date Comments Fish-Derived Products Itching 08/10/2021 [place] Medications Blood Glucose Monitoring Suppl (FREESTYLE LITE) DeviceIndicatio ns:Type 2 diabetes mellitus without complication, without long-term current use of insulin ([facility]) Check sugars daily 1 each 1 4 Active Glucose Blood (FREESTYLE LITE) test stripIndication s:Type 2 diabetes mellitus without complication, without long-term current use of insulin ([facility]) 1 strip by Other route as needed. Use as instructed 100 strip 3 4 Active Lancets (FREESTYLE) lancetsIndicati ons:Type 2 diabetes mellitus without complication, without long-term current use of insulin ([facility]) 1 each by Other route as needed. Use as instructed 100 each 3 4 Active drospirenone-et hinyl estradiol (SABAS) 3-0.03 MG tablet Take 1 tablet by mouth daily. 4 11/14/19 25 Active tirzepatide (MOUNJARO) 5 MG/0.5ML injectionIndica tions:Diabetes Mellitus Inject 5 mLs into the skin once a week. Indications: Diabetes 2 mL 3 10/03/202 4 Active tirzepatide (MOUNJARO) 2.5 MG/0.5ML injectionIndica tions:Type 2 diabetes mellitus without complication, without long-term current use of insulin ([facility]) INJECT 2.5 MG INTO THE SKIN EVERY 7 DAYS. INDICATIONS: DIABETES 2 mL 2 4 Active Additional Information Patient not taking.Reported on 07/27/2024 famotidine (PEPCID) 40 MG tabletIndicatio ns:Esophagitis Take 1 tablet (40 mg total) by mouth 2 (two) times daily. 30 tablet 1 Active Active Problems Problem Noted Date Diagnosed Date Type 2 diabetes mellitus wit hout complication, without long-term current use of insulin ([facility]) 11/18/2023 Resolved Problems Problem Noted Date Diagnosed Date Resolved Date ([facility]) 08/12/2022 08/16/19 24 Gestational diabetes mellitu s (GDM) in third trimester controlled on oral hypoglycemic drug ([facility]) 07/26/2022 02/01/2023 Encounters Date Type Department Care Team Description 07/30/2024 Scan HEALTH INFO SRVCS Scanned, Doc Med Group CT (SCAN) 07/29/2024 Scan HEALTH INFO SRVCS Scanned, Doc Med Group 07/27/2024 9:40 AM MECHANIC HELPER Office Visit [facility] Family [facility] [place] [address] [place] [address] Saskia Cottrell DO Abdominal Pain (Patient here today for sternum pain x 2 days.) 07/27/2024 Travel 07/26/2024 MyChart Message Enc [facility] [place] [address], [address] [place] [address] Saskia Cottrell DO Mounjaro intake 07/09/2024 MyChart Message Enc [facility] [place] [facility] [place] [address], [address] ' [place] [address] Saskia Cottrell DO Adenovirus/Pneumonia 06/23/2024 MyChart Message Enc [facility] [place] [address] [place] [address] Saskia Cottrell, DO Dry & Itchy lips 05/31/2024 MyChart Message Enc [facility] [place] [address] [place] [address] Saskia Cottrell, DO Light headedness from Last 3 Months Immunizations Name Administration Dates Next Due Fluzone (IIV3, Trivalent, 0.5 ML Prefilled Syrin ge) 04/03/2024 Fluzone 6 Months+ Quad (0.5 mL Prefilled Syringe ) 08/15/2022 Pneumococcal (Prevnar 20) 11/18/2023 Tdap (Boostrix) 08/15/2022,08/14/2022() Family History Medical History Relation Comments Diabetes Father Hypertension Father Stent Cardiac Father Cancer Paternal Aunt breast Relation Status Comments Father Paternal Aunt Social History Tobacco Use Types Packs/Day Years Used Date Smoking Tobacco: Former Cigarettes Passive Smoke Exposure: Past Smokeless Tobacco: Never Tobacco Cessation:Counseling Given: No Alcohol Use Standard Drinks/Week Comments Not Currently [...] often do you attend chur ch or yazidi services? Never 08/12/2022 Active Member of Clubs [...] Date Recorded Patient Health Questionnaire-2 Score 0 07/27/2024 [facility] of Occupat ional Health - Occupational [...] place to sleep or slept in a residential (including now)? No 08/13/2022 Depression Answer Date Recor ded Last EPDS Total Score 3 08/14/2022 Last EPDS Self Harm Result Often 08/14 Comments No Sex and Gender Information Value Date Recorded Sex Assigned at Not on file Legal Sex Female 2:38 PM CDT Gender Identity Female 12/28/2021 2:46 PM CDT Sexual Orientation Not on file Last Filed Vital Signs Vital Sign Reading Time Taken Comments Blood Pressure 100/70 07/27/2024 9:53 AM MECHANIC HELPER Pulse 85 07/27/2024 9:53 AM MECHANIC HELPER Temperature 36.3 C (97.3 F) 07/27/2024 9:53 AM MECHANIC HELPER Respiratory Rate 18 07/27/2024 9:53 AM MECHANIC HELPER Oxygen Saturation 99% 07/27/2024 9:53 AM MECHANIC HELPER Inhaled Oxygen Concentration - - Weight 51.3 kg (113 lb 3.2 oz) 07/27/2024 9:53 A M MECHANIC HELPER Height 144.8 cm (4' 9 ) 08/16/2023 3:59 PM MECHANIC HELPER Body Mass Index 24.5 08/16/2023 3:59 PM MECHANIC HELPER Plan of Treatment Health Maintenance Due Date Last Done Comments Cervical Cancer Screening Pa p Smear (Age 21 to 29) Every 3 Years 1997 Cervical Cancer Screening 1997 Kidney Health Evaluation 1997 Lipid Panel 1997 HPV Vaccines (1 - 3-dose series) 2012 Diabetes: Retinopathy Eye Exam 12/26/2015 Hepatitis C 12/26/2015 Hepatitis B Vaccines (1 of 3 - 19+ 3-dose series) 2016 COVID-19 Vaccine ( - 2023-2 5 season) 2024 Annual Physical 08/16/2024 08/16/2023 Hemoglobin A1C 01/24/2025 07/27/2024, 11/18/2023, 08/10/2023 DTaP, Tdap and Td Vaccines ( 2 - Td or Tdap) 08/15/2032 08/15/2022 Pneumococcal Vaccine: Pediatrics (0 to 5 Years) and At-Risk Patients (6 to 64 Years) Completed 11/18/2023 Influenza Adult Completed 04/03/2024, 08/15/2022 PHQ-2 (Physician [place]) Completed 07/27/2024 Meningococcal B Vaccine Aged Out No l onger eligible based on patient's age to complete this topic Meningococcal Vaccine Aged Out No pete toro eligible based on patient's age to complete this topic RSV Immunizations Under 20 Months Aged Out No longer eligible b ased on patient's age to complete this topic Procedures Procedure Name Priority Date/Time Associated Diagnosis Comments CT GENERIC 07/30/2024 COLLECT.CAPILLARY (FNGR,HEEL,EAR) Routine 07/27/2024 10:08 AM MECHANIC HELPER Type 2 diabetes mellitus without complication, without long-term current use of insulin ([facility]) HEMOGLOBIN, GLYCOSYLATED Routine 07/27/2024 Type 2 diabetes mellitus without complication, without long-term current use of insulin ([facility]) from Last 3 Months Results * CT GENERIC (07/30/2024) Anatomical Region Laterality Modality Other 07/30/2024 us Doc Med Group Scanned SCANNING Final Resu lt * HEMOGLOBIN, GLYCOSYLATED (07/27/2024) HGB A1C 4.6 % MG-N [facility] 07/27/2024 Saskia Cottrell DO LABORATORY Final Result MG-N [facility] [address] [address], from Last 3 Months Insurance [facility] Advance Directives * Full Code (Latest Code Status on File) Date Activated Date Inactivated Comments 08/13/2022 1:02 PM 08/15/2022 6:51 PM * Full Code Date Activated Date Inactivated Comments 08/12/2022 9:06 PM 08/13/2022 1:02 PM Care Teams Pad Machine Feeder Relationship Specialty Start Date End Date Saskia Cottrell DO [address] '[place] [address] PCP - General FAMILY PRACTICE 08/10/21
--- OUTSIDE RECORDS SUMMARY | 2024-08-19 23:37 | XMS_ITS | Encounter Summary ---
Author Organization [facility] Address [address] [place] [address] Care Team Providers Care Forest Products Teacher Name Role Phone Saskia Cottrell DO Primary Care Provider [phone] Encounter Details Date Type Department Care Team (Late st Contact Info) Description 03/24/2024 Big Contacts Message Enc [facility] Medical Group Family Medicine - [place] [address], [address] [place] [address] Saskia Cottrell DO [address] [place] [address] Outer ear itchiness Social History Tobacco Use Types Packs/Day Years [...] How often do you attend chur or worship services? Never 08/12/2022 Active Member of Clubs [...] Recorded Patient Health Questionnaire-2 Score 0 08/16/2023 [facility] of Occupat ional Health - Occupational Stress [...] Assessment Author Status No 08/12/2022 8:[address] [place] [employer] LAW CLERK Activ e * RETIRED Are you blind or do you have serious difficulty seeing, even when wearing glasses? Answer Date of Assessment Author Status No 08/12/2022 8:[address] [place] LAW CLERK Activ e * Do you have serious difficulty walking or climbing stairs? Answer Date of Assessment Author Status No 08/12/2022 8:[address] [place] LAW CLERK Karo Ortega R N Active * Do [...] documented as of this encounter Care Teams Forest Products Teacher Relationship Specialty Start Date End Date Saskia Cottrell DO [address] [place] [address] PCP - General FAMILY PRACTICE 08/10/21 documented as of this encounter
--- OUTSIDE RECORDS SUMMARY | 2024-08-19 23:37 | XMS_ITS | Encounter Summary ---
Author Organization [facility] Address [address] [place] [address] Care Team Providers Care Band Maker Name Role Phone Saskia Cottrell DO Primary Care Provider [phone] Encounter Details Date Type Department Care Team (Late st Contact Info) Description 03/16/2024 Celles Message Enc [facility] Medical Group Family Medicine - [place] [address] [place] [address] Saskia Cottrell DO [address] [place] [address] Diaper Rash Social History Tobacco Use Types [...] often do you attend chur ch or tenriism services? Never 08/12/2022 Active Member of Clubs [...] Recorded Patient Health Questionnaire-2 Score 0 08/16/2023 [facility] of Occupat ional Health - Occupational Stress [...] Assessment Author Status No 08/12/2022 8:45 PM SUPERVISOR ELECTRONIC TESTING Activ e * RETIRED Are you blind or do you have serious difficulty seeing, even when wearing glasses? Answer Date of Assessment Author Status No 08/12/2022 8:45 PM SUPERVISOR ELECTRONIC TESTING Activ e * Do you have serious difficulty walking or climbing stairs? Answer Date of Assessment Author Status No 08/12/2022 8:45 PM SUPERVISOR ELECTRONIC TESTING Karo Ortega R N Active * Do you have difficulty dressing or bathing? Answer Date of Assessment Author Status No 08/12/2022 8:45 PM Karo Das R N Active * Because of a physical, mental, or emotional condition, do you have difficulty doing errands alone such as visiting a doctor's office or shopping? Answer Date of Assessment Author Status No 08/12/2022 8:45 PM SUPERVISOR ELECTRONIC TESTING Karo Ortega R N Active documented as of this encounter Mental Status * Because of a physical, mental, or emotional condition, do you have serious difficulty concentrating, remembering, or making decisions? Answer Entry Date Author Status No 08/12/2022 8:45 PM Karo Das R N Active documented in this encounter Progress Notes * Saskia Cottrell DO - 03/16/2024 11:27 AM CDT Please refill aspens cream documented in this encounter Plan of Treatment Not on file documented as of this encounter Visit Diagnoses Not on filedocumented in this encounter Additional Health Concerns Assessment Noted Time PHQ-9 Depression Total Score: 11 09/23/ 023 4:39 PM CDT documented as of this encounter Care Teams Band Maker Relationship Specialty Start Date End Date Saskia Cottrell DO [address] [place] [address] PCP - General FAMILY PRACTICE 08/10/21 documented as of this encounter
--- OUTSIDE RECORDS SUMMARY | 2024-08-19 23:37 | XMS_ITS | Encounter Summary ---
Author Organization [facility] Address [address] [place] [address] Care Team Providers Care Video Presentation Operator Name Role Phone Saskia Cottrell DO Primary Care Provider [phone] Encounter Details Date Type Department Care Team (Late st Contact Info) Description 07/09/2024 Vico Software Message Enc [facility] Medical Group Family Medicine - [place] [address] [place] [address] Saskia Cottrell DO [address] [place] [address] Adenovirus/Pneumonia Social History Tobacco Use Types Packs/Day Years [...] often do you attend chur ch or mormon services? Never 08/12/2022 Active Member of Clubs [...] Recorded Patient Health Questionnaire-2 Score 0 08/16/2023 [facility] of Occupat ional Health - [...] Assessment Author Status No 08/12/2022 8:45 PM SECURITY INTERN Activ e * RETIRED Are you blind or do you have serious difficulty seeing, even when wearing glasses? Answer Date of Assessment Author Status No 08/12/2022 8:45 PM SECURITY INTERN Activ e * Do you have serious difficulty walking or climbing stairs? Answer Date of Assessment Author Status No 08/12/2022 8:45 PM SECURITY INTERN Karo Ortega R N Active * Do [...] documented as of this encounter Care Teams Video Presentation Operator Relationship Specialty Start Date End Date Saskia Cottrell DO [address] [place] [address] PCP - General FAMILY PRACTICE 08/10/21 documented as of this encounter
--- OUTSIDE RECORDS SUMMARY | 2024-08-19 23:37 | XMS_ITS | Encounter Summary ---
Author Organization [facility] Address [address] [place] [address] Care Team Providers Care Philosophy Instructor Name Role Phone Saskia Cottrell DO Primary Care Provider [phone] Encounter Details Date Type Department Care Team (Late st Contact Info) Description 12/23/2022 [employer] [facility] [place] [facility] Provider Brewer Social History Tobacco Use Types Packs/Day Years [...] often do you attend chur ch or anabaptism services? Never 08/12/2022 Active Member of Clubs [...] Recorded Patient Health Questionnaire-2 Score 2 09/23/2022 [facility] - Occupational [...] Assessment Author Status No 08/12/2022 8:45 PM OUTSIDE UPHOLSTERER Activ e * RETIRED Are you blind or do you have serious difficulty seeing, even when wearing glasses? Answer Date of Assessment Author Status No 08/12/2022 8:45 PM OUTSIDE UPHOLSTERER Activ e * Do you have serious difficulty walking or climbing stairs? Answer Date of Assessment Author Status No 08/12/2022 8:45 PM OUTSIDE UPHOLSTERER Karo Ortega R N Active * Do you have difficulty dressing or bathing? Answer Date of Assessment Author Status No 08/12/2022 8:45 PM OUTSIDE UPHOLSTERER Karo Ortega R N Active * Because of a physical, mental, or emotional condition, do you have difficulty doing errands alone such as visiting a doctor's office or shopping? Answer Date of Assessment Author Status No 08/12/2022 8:45 PM OUTSIDE UPHOLSTERER Karo Ortega R N Active documented as [...] documented as of this encounter Care Teams Philosophy Instructor Relationship Specialty Start Date End Date Saskia Cottrell DO [address] [place] [address] PCP - General FAMILY PRACTICE 08/10/21 documented as of this encounter
--- OUTSIDE RECORDS SUMMARY | 2024-08-19 23:37 | XMS_ITS | Encounter Summary ---
Author Organization [facility] Address [address] [place] [address] Care Team Providers Care Shredder Tender Name Role Phone Saskia Cottrell DO Primary Care Provider [phone] Encounter Details Date Type Department Care Team (Late st Contact Info) Description 11/07/2023 [employer] Message Enc [facility] Medical [facility] Family Medicine - [place] [address] [place] [phone] Saskia Cottrell DO [address] [place] [address] control related to control Social History Tobacco Use Types Packs/Day Years [...] How often do you attend chur or yarsanism services? Never 08/12/2022 Active Member of Clubs [...] Recorded Patient Health Questionnaire-2 Score 0 08/16/2023 [facility] - [...] Assessment Author Status No 08/12/2022 8:45 PM HYDRAULIC REPAIRER Activ e * RETIRED Are you blind or do you have serious difficulty seeing, even when wearing glasses? Answer Date of Assessment Author Status No 08/12/2022 8:45 PM HYDRAULIC REPAIRER Activ e * Do you have serious difficulty walking or climbing stairs? Answer Date of Assessment Author Status No 08/12/2022 8:45 PM HYDRAULIC REPAIRER Karo Ortega R N Active * Do [...] documented as of this encounter Care Teams Shredder Tender Relationship Specialty Start Date End Date Saskia Cottrell DO [address] [place] [address] PCP - General FAMILY PRACTICE 08/10/21 documented as of this encounter
--- OUTSIDE RECORDS SUMMARY | 2024-08-19 23:38 | XMS_ITS | Encounter Summary ---
Author Organization [facility] Address [address] [place] [address] Care Team Providers Care Electrical Transmission Engineer Name Role Phone Saskia Cottrell DO Primary Care Provider [phone] Encounter Details Date Type Department Care Team (Late Contact Info) Description 09/16/2022 [employer] Message Enc [facility] Medical Group Family Medicine - [place] [address] [place] [phone] Saskia Cottrell DO [address] [place] [address] Sleep Deprivation & Anxiety Social History Tobacco Use Types Packs/Day Years [...] How often do you attend chur or latter-day services? Never 08/12/2022 Active Member of Clubs [...] Date Recorded Patient Health Questionnaire-2 Score 0 07/26/2022 [facility] Occupat ional Health - Occupational [...] place to sleep or slept in a prison (including now)? No 08/13/2022 Depression Answer Date [...] Assessment Author Status No 08/12/2022 8:45 PM WELLNESS SPECIALIST Activ e * RETIRED Are you blind or do you have serious difficulty seeing, even when wearing glasses? Answer Date of Assessment Author Status No 08/12/2022 8:45 PM WELLNESS SPECIALIST Activ e * Do you have serious difficulty walking or climbing stairs? Answer Date of Assessment Author Status No 08/12/2022 8:45 PM WELLNESS SPECIALIST Karo Ortega R N Active * Do you have difficulty dressing or bathing? Answer Date of Assessment Author Status No 08/12/2022 8:45 PM WELLNESS SPECIALIST Karo Ortega R N Active * Because of a physical, mental, or emotional condition, do you have difficulty doing errands alone such as visiting a doctor's office or shopping? Answer Date of Assessment Author Status No 08/12/2022 8:45 PM WELLNESS SPECIALIST Karo Ortega R N Active documented as of this encounter Mental Status * Because of a physical, mental, or emotional condition, do you have serious difficulty concentrating, remembering, or making decisions? Answer Entry Date Author Status No 08/12/2022 8:45 PM WELLNESS SPECIALIST Karo Ortega R N Active documented in this encounter Progress Notes * Saskia Cottrell DO - 09/16/2022 9:27 AM CST Should be an appointment to discuss medication NESS SPECIALIST documented in this encounter Plan of Treatment Not on file documented as of this encounter Visit Diagnoses Not on filedocumented in this encounter Additional Health Concerns Assessment Noted Time PHQ-9 Depression Total Score: 0 08/10/19 22 2:52 PM WELLNESS SPECIALIST documented as of this encounter Care Teams Electrical Transmission Engineer Relationship Specialty Start Date End Date Saskia Cottrell DO [address] [place] [address] PCP - General FAMILY PRACTICE 08/10/21 documented as of this encounter
--- OUTSIDE RECORDS SUMMARY | 2024-08-19 23:38 | XMS_ITS | Encounter Summary ---
Author Organization [facility] Address [facility] [place] [address] Care Team Providers Care Ink Maker Name Role Phone Saskia Cottrell DO Primary Care Provider [phone] Reason for Referral * Consultation (Urgent) - Authorized Specialty Diagnoses / Procedures Referred By Contact Referred To Contact GASTROENTEROLOGY Diagnoses Elevated LFTs Colicky RUQ abdominal pain Saskia Cottrell DO [address] [place] [address] Phone: tel: fax: [facility] Gastroenterology Centralized Referral [address] [place] [address] Phone: tel: fax: Referral ID Status Reason Start Date Expiration Date Visits Requested Visits Authorized [id number] Authorized Specialty Services 07/31/2024 07/31/2025 100 100 Scheduling Instructions [facility] if in-network with insurance. NT SOLICITOR Encounter Details Date Type Department Care Team (Late st Contact Info) Description 07/26/2024 MyChart Message Enc [facility] Medical Group Family Medicine - [place] [address], [address] [place] [phone] Saskia Cottrell DO [address] [place] [address] Mounjaro intake Social History Tobacco Use Types Packs/Day Years [...] often do you attend chur ch or caodaism services? Never 08/12/2022 Active Member of Clubs [...] Recorded Patient Health Questionnaire-2 Score 0 07/27/2024 [facility] - Occupational Stress [...] place to sleep or slept in a [place] facility (including now)? No 08/13/2022 Depression Answer Date [...] Assessment Author Status No 08/12/2022 8:45 PM PATENT SOLICITOR Activ e * RETIRED Are you blind or do you have serious difficulty seeing, even when wearing glasses? Answer Date of Assessment Author Status No 08/12/2022 8:45 PM PATENT SOLICITOR Activ e * Do you have serious [...] documented in this encounter Progress Notes * Whit Santana RN - 07/31/2024 3:55 PM CST Spoke with patient and informed her of CT and lab results from ER, and recommendations as noted perDr. Cottrell. Patient verbalized understanding of results and agrees to recommendations. She inquiresabout causes for elevated liver enzymes. She report she has taken occasional tylenol but not often and she does not drink alcohol. Advised may be due to virus or GI illness, therefore referral to GI and repeat labs next week to further eval for cause.She VU and agrees. She will go to [facility] in 1week. Opportunity given for all questions to be answered, no further needs voiced at this time. NT SOLICITOR * Whit Santana RN - 07/31/2024 3:45 PM CST Images from the original note were not included. ER visit Received: Today (07/31/24 @ 3:28pm) DO Miriam Gallego [facility] Please call patient regarding [facility] ER records CT scan shows that gallbladder liver and spleen are normal so there is no reason why on this set ofher labs her AST and ALT were 291 and 462 respectively I would like to have a Urgent GI referral to [facility] I would also like next week for her to repeat CMP and Acute hepatitis panel Will place ER records in nurse paper basket as were faxed to us today. NT SOLICITOR * Saskia Cottrell DO - 07/31/2024 9:44 AM CST Can we call [facility] for her records to be faxed please NT SOLICITOR documented in this encounter Plan of Treatment Scheduled Orders Name Type Priority Associated Diagnoses Orde r Schedule COMPREHENSIVE METABOLIC PANEL Lab Routine Elevated LFTs Colicky RUQ abdominal pain Expected: 08/06/2024 (Approximate), Expires: 07/31/2025 HEPATITIS PANEL,ACUTE Lab Routine Elevated LFTs Colicky RUQ abdominal pain Expected: 08/06/2024 (Approximate), Expires: 07/31/2025 Scheduled Referrals Name Type Priority Associated Diagnoses Orde r Schedule Ambulatory referral to Gastroenterology (OTHER) Referral JAMEY Elevated LFTs Colicky RUQ abdominal pain Ordered: 07/31/2024 documented as of this encounter Visit Diagnoses Diagnosis Elevated LFTs- Primary Other abnormal blood chemistry Colicky RUQ abdominal pain Abdominal pain, right upper quadrant documented in this encounter Additional Health Concerns Assessment Noted Time PHQ-9 Depression Total Score: 11 09/23/ 023 4:39 PM CDT documented as of this encounter Care Teams Ink Maker Relationship Specialty Start Date End Date Saskia Cottrell DO [address] [place] [address] PCP - General FAMILY PRACTICE 08/10/21 documented as of this encounter
[2024-08-19 23:42] VITALS: BP 102/83; PULSE 103; RESP 17; TEMP 36.7
[2024-08-19 23:52] LABS: BEDSIDEPREGUCG Negative (Negative)
--- NOTE | 2024-08-19 23:55 | ED_ITS ---
HPI - Abdominal Pain General Chief Complaint: Abdominal Pain Stated Complaint: abd pain Time Seen by Provider: 08/19/24 23:40 Source: patient and family ([id number]) Mode of arrival: ambulatory Limitations: no limitations History of Present Illness HPI narrative: 28-year-old female with past medical history type 2 diabetes mellitus and history Caesarean section presents with acute onset right upper quadrant abdominal pain. Patient states she was seen for this recently and told was an issue with her gallbladder and that she needed follow-up outpatient with surgery but states she never received a call back when she attempted to schedule this. Earlier today she had fried chicken and fries and this seemed to have set off her pain. She finished her last menstrual period yesterday. Denies any vaginal discharge. No diarrhea, constipation, or bloody stools. Last oral intake was at 5:30 p.m. and she does not currently have an appetite. She was feeling nauseated and had emesis prior to arrival that was nonbloody but she states her nausea has now resolved. No fevers or chills, no dysuria, urgency, frequency, or hematuria. Not on anticoagulation. She took 2 Tylenol at 6:00 p.m. followed by another dose of 2 Tylenol and either 830 your 9:00 p.m.. She is on Monjaro for her diabetes. Related Data Home Medications ?Medication ?Instructions ?Recorded ?Confirmed ?Last Taken ?Type tirzepatide 2.5 mg/0.5 mL 2.5 mg subcut WEEKLY 08/20/24 08/20/24 08/15/24 History subcutaneous pen injector (Mounjaro) Allergies Allergy/AdvReac Type Severity Reaction Status Date / Time No Known Allergies Allergy Verified 08/19/24 23:47 [facility] Past Medical History Medical History Type 2 diabetes mellitus Surgical History Surgical History H/O section Family History Family History Grandparent Breast cancer Father Diabetes mellitus Social History Social History Smoking status: Never smoker Alcohol intake: current Drinks per week: 0 Substance use: never Substance use type: does not use Do You Feel Safe in your Home?: Yes Lack of Transportation: No Lack of Food: Never True Current Housing: I Have Housing Concerned About Future Housing: No Difficulty Paying Gas/Electric Bills: No Difficulty Paying for Meds: No Currently Unemployed: No Education: Bachelor's Degree Difficulty w/ Childcare or Family Care: No Living arrangements: with family Additional living arrangements comments: and child Spiritual care concerns: No Exam 2 Narrative: GENERAL: Well-appearing, well-nourished, in moderate acute distress, curled up while seated upright in stretcher, legs pulled up HEAD: Normocephalic, atraumatic. EYES: Non injected, non icteric ENT: Nares clear, no rhinorrhea or epistaxis. NECK: Supple. CHEST: Speaking in full sentences. No respiratory distress. HEART: Regular rate and rhythm. . ABDOMEN: Soft, nondistended. Tenderness to palpation in the right upper quadrant with guarding but no rigidity. Gutierres sign positive. EXTREMITIES: Normal range of motion. No lower extremity edema. SKIN: Warm, dry, no rash. NEURO: No focal deficits. Alert and oriented x3. PSYCH: Normal mood and affect. Course Vital Signs Vital signs: Vital Signs Temperature 98.1 F 08/19/24 23:42 Pulse Rate 103 H 08/19/24 23:42 Respiratory Rate 17 08/19/24 23:42 Blood Pressure 102/83 08/19/24 23:42 Oxygen Delivery Room Air 08/19/24 23:42 Temperature 97.6 F 08/20/24 14:00 Pulse Rate 85 08/20/24 14:00 Respiratory Rate 20 08/20/24 14:00 Blood Pressure 102/71 08/20/24 14:00 Pulse Oximetry 100 08/20/24 14:00 Oxygen Delivery Room Air 08/20/24 08:00 MDM - Abdominal Pain MDM Narrative Medical decision making narrative: Patient presents with right upper quadrant abdominal pain starting tonight. Recently seen for biliary colic (though with elevated LFTs); states had not gotten a call back from general surgeon for outpatient appointment/follow up. Had fries and fried chicken ealier tonight. In the emergency department she is afebrile with vital signs notable for tachycardia. She does have RUQ TTP and is Gutierres sign positive on my exam. Mother in law asks if gallbladder can be removed tonight. I indicated that the work up would need to be completed as there is a spectrum of biliary causes but also other etiologies that must also still be considered. Hemoglobin mildly elevated, likely due to a degree of hemoconcentration. Mild ketonuria. test negative. She is hypokalemic; will order repletion obtain magnesium. Lipase normal. Hyperglycemia with a slight anion gap but no acidosis. Patient has transaminitis. She similarly had transaminitis which she was recently seen for biliary colic however the ALT and AST are now inverted in terms of the ratio. Alkaline phosphatase normal, not suggestive of obstruction. I am asked multiple times by nursing if patient can have water, unclear if this is her request or at the behest of her mother in law. Kept reiterating no. IV fluids orderd. CT suggets acute cholecystitis. Possible equivocal choledocholithiasis is mentioned however CBD </= 6mm. Spoke with Dr. Mitchell at 5:30 who advises placing NPO order (patient has been NPO since 5:30pm 08/19/24), giving a proton pump inhibitor, starting Zosyn, and admitting to himself. Feels that CBD measurement not suggestive of choledolithiasis. Patient informed. Mother in law and patient will be calling insurance company to see if this will be covered. I did express that I have no way of knowing that and that insurance companies not typically open at 5:30am. She is otherwise asymptomatic at this time, no pain or nausea. Differential Diagnosis Differential diagnosis: Likely abdominal pain, constipation, diverticulitis, pancreatitis and other (Biliary etiology) Lab Data Attestation: I reviewed the patient's lab results. 08/20/24 10:10 08/20/24 10:10 Labs: Lab Results 08/19/24 08/19/24 08/20/24 Range/Units 23:50 23:52 01:17 WBC 8.3 (4.5-10.0) K/mm3 RBC 5.05 (4.2-5.4) M/mm3 Hgb 15.4 H (12.0-15.0) g/dL Hct 43.9 (37.0-47.0) % MCV 86.9 (80-100) fl MCH 30.5 (26-34) pg MCHC 35.1 (32-36) g/dl RDW 12.8 (11.5-14.5) % Plt Count 248 (150-375) k/mm3 MPV 8.3 (7.4-10.4) fl Immature Gran % (Auto) 0.2 (0-0.5) % Neut % (Auto) 69.7 (45.5-73.1) % Lymph % (Auto) 21.7 (18.3-44.2) % [place] % (Auto) 6.8 (2.6-8.5) % Eos % (Auto) 1.4 (0-4.4) % Baso % (Auto) 0.2 (0.2-1.2) % Lymph # (Auto) 1.80 (0.9-3.2) K/mm3 Juncos # (Auto) 0.6 (0.1-0.6) K/mm3 Eos # (Auto) 0.1 (0-0.3) K/mm3 Baso # (Auto) 0.0 (0.0-0.1) K/mm3 Abs Immat Gran (auto) 0.02 (0.00-0.031) K/mm3 Absolute Neuts (auto) 5.8 (1.3-6.7) K/mm3 Absolute Nucleated RBC 0.000 (0.0-0.012) K/mm3 Nucleated RBC % 0.0 (0.0-0.2) % Sodium 140 (137-145) mmol/L Potassium 3.1 L (3.4-5.0) mmol/L Chloride 101 (98-107) mmol/L Carbon Dioxide 26 (22-30) mmol/L Anion Gap 13 H (4-12) mmol/L BUN 7 (7-17) mg/dL Creatinine 0.62 L (0.7-1.0) mg/dL Estim Creat Clear Calc Not Reportable Estimated GFR > 60 (59 - ) Glucose 161 H (65-110) mg/dL Calcium 9.0 (8.4-10.2) mg/dL Magnesium 2.1 (1.6-2.3) mg/dL Total Bilirubin 1.4 H (0.2-1.3) mg/dL AST 448 H (14-36) U/L ALT 223 H (6-35) U/L Alkaline Phosphatase 86 (38-126) U/L Total Protein 7.0 (6.3-8.2) g/dL Albumin 4.1 (3.5-5.1) g/dL Lipase 95 (23-300) U/L Urine Color Dark yellow (Yellow) Urine Appearance Clear (Clear) Urine pH 5.5 (5.0-9.0) Ur Specific [place] 1.026 (1.001-1.035) Urine Protein Negative (Negative) mg/dL Urine Glucose (UA) Negative (Negative) mg/dL Urine Ketones 2+ H (Negative) mg/dL Ur Blood (Man) Negative (Negative) Urine Nitrate Negative (Negative) Urine Bilirubin Negative (Negative) Urine Urobilinogen 1.0 (<2.0) mg/dL Leukocyte Esterase Rfl Negative (Negative) BERYL/UL POC Urine HCG, Qual Negative (Negative) Imaging Data Radiologist's impression: ITS Impressions Abdomen/Pelvis CT 08/20/24 06:33 Impression: Distended gallbladder with probable mild wall thickening. Acute cholecystitis is a consideration. Correlate clinically. Consider ultrasound and/or HIDA scan for further evaluation as indicated. Abdomen Ultrasound 08/20/24 10:50 IMPRESSION: 1. Cholelithiasis and positive sonographic Gutierres sign, but no gallbladder distention or gallbladder wall thickening to suggest acute cholecystitis. 2. Mildly dilated common duct. CT Abd/Pelvis w/ contrast: Mild gallbladder wall thickening with adjacent fluid. Findings may be due to cholecystitis. Consider correlation with laboratory values. Mild dilatation of the common duct measuring up to 6 mm with enhancement. No obstructive calculus detected. If there is further concern, consider MRCP. Normal appendix. No evidence of bowel obstruction. No other acute findings. Discharge Plan Discharge Clinical Impression: Cholecystitis, Hypokalemia, Hyperglycemia due to diabetes mellitus, Transaminitis Patient Disposition: Still a Patient Condition: Stable
[2024-08-19 23:57] VITALS: O2SAT 100
--- OUTSIDE RECORDS SUMMARY | 2024-08-19 23:59 | XMS_ITS | Encounter Summary ---
Author Organization [facility] Address [address] [place] [address] Care Team Providers Care Kennel Supervisor Name Role Phone Saskia Cottrell DO Primary Care Provider [phone] Encounter Details Date Type Department Care Team (Late st Contact Info) Description 02/02/2024 [employer] Message Enc [facility] Medical Group Family Medicine - [place] [address] [place] [phone] Saskia Cottrell DO [address] [place] [address] Sick Social History Tobacco Use Types Packs/Day [...] often do you attend chur ch or bahai services? Never 08/12/2022 Active Member of Clubs [...] to sleep or slept in a senior living (including now)? No 08/13/2022 Depression Answer Date [...] Assessment Author Status No 08/12/2022 8:45 PM CHILI POWDER MIXER Activ e * RETIRED Are you blind or do you have serious difficulty seeing, even when wearing glasses? Answer Date of Assessment Author Status No 08/12/2022 8:45 PM CHILI POWDER MIXER Activ e * Do you have serious difficulty walking or climbing stairs? Answer Date of Assessment Author Status No 08/12/2022 8:45 PM CHILI POWDER MIXER Karo Ortega R N Active * Do you have difficulty dressing or bathing? Answer Date of Assessment Author Status No 08/12/2022 8:45 PM CHILI POWDER MIXER Karo Ortega R N Active * Because of a physical, mental, or emotional condition, do you have difficulty doing errands alone such as visiting a doctor's office or shopping? Answer Date of Assessment Author Status No 08/12/2022 8:45 PM CHILI POWDER MIXER Karo Ortega R N Active documented as of this encounter Mental Status * Because of a physical, mental, or emotional condition, do you have serious difficulty concentrating, remembering, or making decisions? Answer Entry Date Author Status No 08/12/2022 8:45 PM CHILI POWDER MIXER Karo Ortega R N Active documented in [...] documented as of this encounter Care Teams Kennel Supervisor Relationship Specialty Start Date End Date Saskia Cottrell DO [address] [place] [address] PCP - General FAMILY PRACTICE 08/10/21 documented as of this encounter
--- OUTSIDE RECORDS SUMMARY | 2024-08-19 23:59 | XMS_ITS | Encounter Summary ---
Author Organization [facility] Address [address] [place] [address] Care Team Providers Care Community Health Navigator Name Role Phone Saskia Cottrell DO Primary Care Provider [phone] Encounter Details Date Type Department Care Team (Late Contact Info) Description 05/31/2024 [employer] Message Enc [facility] Medical Group Family Medicine - [place] [address] [place] [phone] Saskia Cottrell DO [address] [place] [address] Light headedness Social History Tobacco Use Types [...] How often do you attend chur or lutheran services? Never 08/12/2022 Active Member of Clubs [...] Recorded Patient Health Questionnaire-2 Score 0 08/16/2023 [facility] Occupat ional Health - Occupational [...] Assessment Author Status No 08/12/2022 8:45 PM ADVERTISING MATERIAL DISTRIBUTOR Activ e * RETIRED Are you blind or do you have serious difficulty seeing, even when wearing glasses? Answer Date of Assessment Author Status No 08/12/2022 8:45 PM ADVERTISING MATERIAL DISTRIBUTOR Activ e * Do you have serious difficulty walking or climbing stairs? Answer Date of Assessment Author Status No 08/12/2022 8:45 PM ADVERTISING MATERIAL DISTRIBUTOR Karo Ortega R N Active * Do [...] Date Author Status No 08/12/2022 8:45 PM [employer] R N Active documented in this encounter Plan of Treatment Not on file documented as of this encounter Visit Diagnoses Not on filedocumented in this encounter Additional Health Concerns Assessment Noted Time PHQ-9 Depression Total Score: 11 023 4:39 PM CDT documented as of this encounter Care Teams Community Health Navigator Relationship Specialty Start Date End Date Saskia Cottrell DO [address] [place] [address] PCP - General FAMILY PRACTICE 08/10/21 documented as of this encounter
--- OUTSIDE RECORDS SUMMARY | 2024-08-19 23:59 | XMS_ITS | Encounter Summary ---
Author Organization [facility] Address [facility] [place] [address] Care Team Providers Care Credit Support Specialist Name Role Phone Saskia Cottrell DO Primary Care Provider Reason for Referral * Consultation (Urgent) - Authorized Specialty Diagnoses / Procedures Referred By Contact Referred To Contact GASTROENTEROLOGY Diagnoses Elevated LFTs Colicky RUQ abdominal pain Saskia Cottrell DO [address] [place] [address] Phone: tel: fax: [facility] Centralized Referral [address] [place] [address] Phone: tel: fax: Referral ID Status Reason Start Date Expiration Date Visits Requested Visits Authorized [id number] Authorized Specialty Services 07/31/2024 07/31/2025 100 100 Scheduling Instructions [facility] if in-network with insurance. ESS TRAINER Encounter Details Date Type Department Care Team (Late st Contact Info) Description 07/26/2024 MyChart Message Enc [facility] Medical Group Family Medicine - [place] [address], [address] [place] [address] Saskia Cottrell DO [address] [place] [address] Mounjaro intake Social History Tobacco Use Types [...] often do you attend chur ch or adventist services? Never 08/12/2022 Active Member of Clubs [...] Recorded Patient Health Questionnaire-2 Score 0 07/27/2024 [facility] - Occupational Stress [...] Assessment Author Status No 08/12/2022 8:45 PM PROCESS TRAINER Activ e * RETIRED Are you blind or do you have serious difficulty seeing, even when wearing glasses? Answer Date of Assessment Author Status No 08/12/2022 8:45 PM PROCESS TRAINER Activ e * Do you have serious [...] no further needs voiced at this time. ESS TRAINER * Whit Santana RN - 07/31/2024 3:45 PM CST Images from the original note were not included. ER visit Received: Today (07/31/24 @ 3:28pm) DO Miriam Gallego [facility] Please call patient regarding Luis Fernando [...] basket as were faxed to us today. ESS TRAINER * Saskia Cottrell DO - 07/31/2024 9:44 AM CST Can we call luis fernando for her records to be faxed please ESS TRAINER documented in this encounter Plan of Treatment [...] documented as of this encounter Care Teams Credit Support Specialist Relationship Specialty Start Date End Date Saskia Cottrell DO [address] [place] [address] PCP - General FAMILY PRACTICE 08/10/21 documented as of this encounter
--- OUTSIDE RECORDS SUMMARY | 2024-08-19 23:59 | XMS_ITS | Encounter Summary ---
Author Organization [facility] Address [address] [place] [address] Care Team Providers Care Drafting Supervisor Name Role Phone Saskia Cottrell DO Primary Care Provider [phone] Encounter Details Date Type Department Care Team (Late Contact Info) Description 06/17/2023 VTL Group Message Enc [facility] Medical Group Family Medicine - [place] [address] [place] [id number] Saskia Cottrell DO [address] [place] [address] Estrogen Test Social History Tobacco Use Types [...] often do you attend chur ch or scientology services? Never 08/12/2022 Active Member of Clubs [...] Recorded Patient Health Questionnaire-2 Score 2 09/23/2022 [facility] Occupat ional Health - Occupational Stress [...] place to sleep or slept in a longterm (including now)? No 08/13/2022 Depression Answer Date [...] Assessment Author Status No 08/12/2022 8:45 PM DRAWING OPERATOR Activ e * RETIRED Are you blind or do you have serious difficulty seeing, even when wearing glasses? Answer Date of Assessment Author Status No 08/12/2022 8:45 PM DRAWING OPERATOR Activ e * Do you have serious difficulty walking or climbing stairs? Answer Date of Assessment Author Status No 08/12/2022 8:45 PM DRAWING OPERATOR Karo Ortega R N Active * Do [...] documented as of this encounter Care Teams Drafting Supervisor Relationship Specialty Start Date End Date Saskia Cottrell DO [address] [place] [address] PCP - General FAMILY PRACTICE 08/10/21 documented as of this encounter
--- OUTSIDE RECORDS SUMMARY | 2024-08-19 23:59 | XMS_ITS | Encounter Summary ---
Author Organization [facility] Address [address] [place] [address] Care Team Providers Care Operating Room Technician Name Role Phone Saskia Cottrell DO Primary Care Provider [phone] Encounter Details Date Type Department Care Team (Late st Contact Info) Description 08/17/2023 Pathagilityt Message Enc [facility] Medical Group Family Medicine - [place] [address], [address] [place] [phone] Saskia Cottrell DO [address] [place] [address] Supplement & Medication Social History Tobacco Use [...] often do you attend chur ch or buddhist services? Never 08/12/2022 Active Member of Clubs [...] Recorded Patient Health Questionnaire-2 Score 0 08/16/2023 [facility] of Occupat ional Health - [...] place to sleep or slept in a long-term (including now)? No 08/13/2022 Depression Answer Date [...] Assessment Author Status No 08/12/2022 8:45 PM STUDIO POTTER Activ e * RETIRED Are you blind or do you have serious difficulty seeing, even when wearing glasses? Answer Date of Assessment Author Status No 08/12/2022 8:45 PM STUDIO POTTER Activ e * Do you have serious difficulty walking or climbing stairs? Answer Date of Assessment Author Status No 08/12/2022 8:45 PM STUDIO POTTER Karo Ortega R N Active * Do [...] documented as of this encounter Care Teams Operating Room Technician Relationship Specialty Start Date End Date Saskia Cottrell DO [address] [place] [address] PCP - General FAMILY PRACTICE 08/10/21 documented as of this encounter
--- OUTSIDE RECORDS SUMMARY | 2024-08-19 23:59 | XMS_ITS | Encounter Summary ---
Author Organization [facility] Address [address] [place] [address] Care Team Providers Care Search Engine Optimization Strategist Name Role Phone Saskia Cottrell DO Primary Care Provider [phone] Encounter Details Date Type Department Care Team (Late st Contact Info) Description 08/10/2023 Mersimo Message Enc [facility] Medical Group Family Medicine - [place] [address], [address] [place] [phone] Saskia Cottrell DO [address] [place] [address] Lab Results Social History Tobacco Use Types [...] often do you attend chur ch or pentecostal services? Never 08/12/2022 Active Member of Clubs [...] Recorded Patient Health Questionnaire-2 Score 2 09/23/2022 [facility] of Occupat ional Health - Occupational [...] Assessment Author Status No 08/12/2022 8:45 PM FISHERIES DIVER Activ e * RETIRED Are you blind or do you have serious difficulty seeing, even when wearing glasses? Answer Date of Assessment Author Status No 08/12/2022 8:45 PM FISHERIES DIVER Activ e * Do you have serious difficulty walking or climbing stairs? Answer Date of Assessment Author Status No 08/12/2022 8:45 PM FISHERIES DIVER Karo Ortega R N Active * Do [...] documented as of this encounter Care Teams Search Engine Optimization Strategist Relationship Specialty Start Date End Date Saskia Cottrell DO [address] [place] [address] PCP - General FAMILY PRACTICE 08/10/21 documented as of this encounter
--- OUTSIDE RECORDS SUMMARY | 2024-08-19 23:59 | XMS_ITS | Encounter Summary ---
Author Organization [facility] Address [address] [place] [address] Care Team Providers Care Supervisor Dental Laboratory Name Role Phone Saskia Cottrell DO Primary Care Provider [phone] Encounter Details Date Type Department Care Team (Late Contact Info) Description 09/16/2022 [employer] Message Enc [facility] Medical Group Family Medicine - [place] [address], [address] [place] [address] Saskia Cottrell DO [address] [place] [address] Sleep Deprivation & Anxiety Social History Tobacco [...] How often do you attend chur or hindu services? Never 08/12/2022 Active Member of Clubs [...] Recorded Patient Health Questionnaire-2 Score 0 07/26/2022 [facility] Occupat ional Health - Occupational [...] Assessment Author Status No 08/12/2022 8:45 PM REFRIGERATION MECHANIC Activ e * RETIRED Are you blind or do you have serious difficulty seeing, even when wearing glasses? Answer Date of Assessment Author Status No 08/12/2022 8:45 PM REFRIGERATION MECHANIC Activ e * Do you have serious difficulty walking or climbing stairs? Answer Date of Assessment Author Status No 08/12/2022 8:45 PM REFRIGERATION MECHANIC Karo Ortega R N Active * Do you have difficulty dressing or bathing? Answer Date of Assessment Author Status No 08/12/2022 8:45 PM REFRIGERATION MECHANIC Karo Ortega R N Active * Because of a physical, mental, or emotional condition, do you have difficulty doing errands alone such as visiting a doctor's office or shopping? Answer Date of Assessment Author Status No 08/12/2022 8:45 PM REFRIGERATION MECHANIC Karo Ortega R N Active documented as of this encounter Mental Status * Because of a physical, mental, or emotional condition, do you have serious difficulty concentrating, remembering, or making decisions? Answer Entry Date Author Status No 08/12/2022 8:45 PM REFRIGERATION MECHANIC Karo Ortega R N Active documented in this encounter Progress Notes * Saskia Cottrell DO - 09/16/2022 9:27 AM CST Should be an appointment to discuss medication IGERATION MECHANIC documented in this encounter Plan of Treatment Not on file documented as of this encounter Visit Diagnoses Not on filedocumented in this encounter Additional Health Concerns Assessment Noted Time PHQ-9 Depression Total Score: 0 08/10/19 22 2:52 PM REFRIGERATION MECHANIC documented as of this encounter Care Teams Supervisor Dental Laboratory Relationship Specialty Start Date End Date Saskia Cottrell DO [address] [place] [address] PCP - General FAMILY PRACTICE 08/10/21 documented as of this encounter
--- OUTSIDE RECORDS SUMMARY | 2024-08-19 23:59 | XMS_ITS | Encounter Summary ---
Author Organization [facility] Address [address] [place] [address] Care Team Providers Care Chair Trimmer Name Role Phone Saskia Cottrell DO Primary Care Provider [phone] Encounter Details Date Type Department Care Team (Late st Contact Info) Description 01/04/2024 [employer] [place] [employer] Message Enc [facility] Medical Group Family Medicine - [place] [address], [address] [place] [phone] Saskia Cottrell DO [address] [place] [address] Abdominal Pain Social History Tobacco Use Types [...] often do you attend chur ch or hindu services? Never 08/12/2022 Active Member [...] Assessment Author Status No 08/12/2022 8:45 PM COAGULATING BATH MIXER Activ e * RETIRED Are you blind or do you have serious difficulty seeing, even when wearing glasses? Answer Date of Assessment Author Status No 08/12/2022 8:45 PM COAGULATING BATH MIXER Activ e * Do you have [...] documented as of this encounter Care Teams Chair Trimmer Relationship Specialty Start Date End Date Saskia Cottrell DO [address] [place] [address] PCP - General FAMILY PRACTICE 08/10/21 documented as of this encounter
--- OUTSIDE RECORDS SUMMARY | 2024-08-19 23:59 | XMS_ITS | Encounter Summary ---
Author Organization [facility] Address [address] [place] [address] Care Team Providers Care Glass Forming Engineer Name Role Phone Saskia Cottrell DO Primary Care Provider [phone] Encounter Details Date Type Department Care Team (Late st Contact Info) Description 01/09/2024 [employer] Message Enc [facility] Medical Group Family Medicine - [place] [address] [place] [phone] Saskia Cottrell DO [address] [place] [address] Chase's Diaper Rash Social History Tobacco Use Types [...] How often do you attend chur or mandaeism services? Never 08/12/2022 Active Member of Clubs [...] Recorded Patient Health Questionnaire-2 Score 0 08/16/2023 [facility] Occupat ional Health - Occupational [...] Assessment Author Status No 08/12/2022 8:45 PM METALIZING MACHINE OPERATOR Activ e * RETIRED Are you blind or do you have serious difficulty seeing, even when wearing glasses? Answer Date of Assessment Author Status No 08/12/2022 8:45 PM METALIZING MACHINE OPERATOR Activ e * Do you have serious difficulty walking or climbing stairs? Answer Date of Assessment Author Status No 08/12/2022 8:45 PM METALIZING MACHINE OPERATOR Karo Ortega R N Active * [...] You could send it over to the [facility] in [address] [place] [address] Thank you documented in this encounter Plan of Treatment Not on file documented as of this encounter Visit Diagnoses Not on filedocumented in this encounter Additional Health Concerns Assessment Noted Time PHQ-9 Depression Total Score: 11 023 4:39 PM CDT documented as of this encounter Care Teams Glass Forming Engineer Relationship Specialty Start Date End Date Saskia Cottrell DO [address] [place] [address] PCP - General FAMILY PRACTICE 08/10/21 documented as of this encounter
--- OUTSIDE RECORDS SUMMARY | 2024-08-19 23:59 | XMS_ITS | Encounter Summary ---
Author Organization [facility] Address [address] [place] [address] Care Team Providers Care Transfer Pumper Name Role Phone Saskia Cottrell DO Primary Care Provider [phone] Encounter Details Date Type Department Care Team (Late st Contact Info) Description 12/23/2022 [employer] [facility] [place] BUSINESS OFFICE [facility]99[facility], [facility] Provider [place] Social History Tobacco Use Types Packs/Day Years [...] often do you attend chur ch or restoration services? Never 08/12/2022 Active Member of Clubs [...] Recorded Patient Health Questionnaire-2 Score 2 09/23/2022 [facility] of Occupat ional Health - Occupational [...] place to sleep or slept in a chcf (including now)? No 08/13/2022 Depression Answer Date [...] Assessment Author Status No 08/12/2022 8:45 PM FINISHING RANGE OPERATOR Activ e * RETIRED Are you blind or do you have serious difficulty seeing, even when wearing glasses? Answer Date of Assessment Author Status No 08/12/2022 8:45 PM FINISHING RANGE OPERATOR Activ e * Do you have serious difficulty walking or climbing stairs? Answer Date of Assessment Author Status No 08/12/2022 8:45 PM FINISHING RANGE OPERATOR Karo Ortega R N Active * Do you have difficulty dressing or bathing? Answer Date of Assessment Author Status No 08/12/2022 8:45 PM FINISHING RANGE OPERATOR Karo Ortega R N Active * Because of a physical, mental, or emotional condition, do you have difficulty doing errands alone such as visiting a doctor's office or shopping? Answer Date of Assessment Author Status No 08/12/2022 8:45 PM FINISHING RANGE OPERATOR Karo Ortega R N Active documented as [...] documented as of this encounter Care Teams Transfer Pumper Relationship Specialty Start Date End Date Saskia Cottrell DO [address] [place] [address] PCP - General FAMILY PRACTICE 08/10/21 documented as of this encounter
--- OUTSIDE RECORDS SUMMARY | 2024-08-19 23:59 | XMS_ITS | Encounter Summary ---
Author Organization [facility] Address [address] [place] [address] Care Team Providers Care Svp Operations Name Role Phone Saskia Cottrell DO Primary Care Provider [phone] Encounter Details Date Type Department Care Team (Late st Contact Info) Description 07/09/2024 [employer] Message Enc [facility] Medical Group Family Medicine - [place] [address] [place] [address] Saskia Cottrell DO [address] [place] [address] Adenovirus/Pneumonia Social History Tobacco Use Types Packs/Day [...] Questionnaire-2 Score 0 08/16/2023 [facility] of Occupat ional Health - Occupational [...] place to sleep or slept in a assisted (including now)? No 08/13/2022 Depression Answer Date [...] Assessment Author Status No 08/12/2022 8:45 PM RNP Activ e * RETIRED Are you blind or do you have serious difficulty seeing, even when wearing glasses? Answer Date of Assessment Author Status No 08/12/2022 8:45 PM RNP Activ e * Do you have serious difficulty walking or climbing stairs? Answer Date of Assessment Author Status No 08/12/2022 8:45 PM RNP Karo Ortega R N Active * Do [...] documented as of this encounter Care Teams Svp Operations Relationship Specialty Start Date End Date Saskia Cottrell DO [address] [place] [address] PCP - General FAMILY PRACTICE 08/10/21 documented as of this encounter
--- OUTSIDE RECORDS SUMMARY | 2024-08-19 23:59 | XMS_ITS | Encounter Summary ---
Author Organization [facility] Address [address] [place] [address] Care Team Providers Care Metal Furniture Repairer Name Role Phone Saskia Cottrell DO Primary Care Provider [phone] Encounter Details Date Type Department Care Team (Late st Contact Info) Description 11/07/[address] [employer] [address] [facility] Medical Group Family Medicine - [place] [address] [place] [address] Saskia Cottrell DO [address] [place] [address] control related to control Social History Tobacco [...] How often do you attend chur or samaritan services? Never 08/12/2022 Active Member of Clubs [...] Recorded Patient Health Questionnaire-2 Score 0 08/16/2023 [facility] of Occupat ional Health - Occupational [...] place to sleep or slept in a mcc (including now)? No 08/13/2022 Depression Answer Date [...] Assessment Author Status No 08/12/2022 8:45 PM PRINTED CIRCUIT BOARDS ROUTER Activ e * RETIRED Are you blind or do you have serious difficulty seeing, even when wearing glasses? Answer Date of Assessment Author Status No 08/12/2022 8:45 PM PRINTED CIRCUIT BOARDS ROUTER Activ e * Do you have serious difficulty walking or climbing stairs? Answer Date of Assessment Author Status No 08/12/2022 8:45 PM PRINTED CIRCUIT BOARDS ROUTER Karo Ortega R N Active * Do [...] documented as of this encounter Care Teams Metal Furniture Repairer Relationship Specialty Start Date End Date Saskia Cottrell DO [address] [place] [address] PCP - General FAMILY PRACTICE 08/10/21 documented as of this encounter
--- OUTSIDE RECORDS SUMMARY | 2024-08-19 23:59 | XMS_ITS | Encounter Summary ---
Author Organization [facility] Address [address] [place] [address] Care Team Providers Care Residential Building Inspector Name Role Phone Saskia Cottrell DO Primary Care Provider [phone] Encounter Details Date Type Department Care Team (Late st Contact Info) Description 03/24/2024 [employer] Message Enc [facility] Medical Group Family Medicine - [place] [address] [place] [address] Saskia Cottrell DO [address] [place] [address] Outer ear itchiness Social History Tobacco Use [...] How often do you attend chur or yazidi services? Never 08/12/2022 Active Member [...] Recorded Patient Health Questionnaire-2 Score 0 08/16/2023 [facility] of Occupat ional Health - Occupational [...] Assessment Author Status No 08/12/2022 8:45 PM METER READER Activ e * RETIRED Are you blind or do you have serious difficulty seeing, even when wearing glasses? Answer Date of Assessment Author Status No 08/12/2022 8:45 PM METER READER Activ e * Do you have serious difficulty walking or climbing stairs? Answer Date of Assessment Author Status No 08/12/2022 8:45 PM METER READER Karo Ortega R N Active [...] documented as of this encounter Care Teams Residential Building Inspector Relationship Specialty Start Date End Date Saskia Cottrell DO [address] [place] [address] PCP - General FAMILY PRACTICE 08/10/21 documented as of this encounter
--- OUTSIDE RECORDS SUMMARY | 2024-08-19 23:59 | XMS_ITS | Clinical Summary ---
Author Organization [facility] Address [address] [place] [id number] Care Team Providers Care Epic Beacon Analyst Name Role Phone Saskia Cottrell DO Primary Care Provider [phone] Allergies Active Allergy Reactions Criticality Noted Date Comments Fish-Derived Products Itching 08/10/2021 [place] Medications Blood Glucose Monitoring Suppl (FREESTYLE LITE) DeviceIndicatio ns:Type 2 diabetes mellitus without complication, without long-term current use of insulin ([facility]) Check sugars daily 1 each 1 4 Active Glucose Blood (FREESTYLE LITE) test stripIndication s:Type 2 diabetes mellitus without complication, without long-term current use of insulin ([facility]) 1 strip by Other route as needed. Use as instructed 100 strip 3 4 Active Lancets (FREESTYLE) lancetsIndicati ons:Type 2 diabetes mellitus without complication, without long-term current use of insulin ([facility]) 1 each by Other route as needed. [...] complication, without long-term current use of insulin ([facility]) INJECT 2.5 MG INTO THE SKIN EVERY [...] complication, without long-term current use of insulin ([facility]) 11/18/2023 Resolved Problems Problem Noted Date Diagnosed Date Resolved Date ([facility]) 08/12/2022 08/16/19 24 Gestational diabetes mellitu s (GDM) in third trimester controlled on oral hypoglycemic drug ([facility]) 07/26/2022 02/01/2023 Encounters Date Type Department Care Team Description 07/30/2024 Scan HEALTH INFO SRVCS Scanned, Doc Med Group CT (SCAN) 07/29/2024 Scan HEALTH INFO SRVCS Scanned, Doc Med Group 07/27/2024 9:40 AM COIN MACHINE COLLECTOR Office Visit [facility] [place] [address], [address] [place] [address] Saskia Cottrell DO Abdominal Pain (Patient here today for sternum pain x 2 days.) 07/27/2024 Travel 07/26/2024 MyChart Message Enc [facility] [place] [address], [address] [place] [address] Saskia Cottrell DO Mounjaro intake 07/09/2024 MyChart Message Enc [facility] [place] [address], [address] ' [place] [address] Saskia Cottrell DO Adenovirus/Pneumonia 06/23/2024 MyChart Message Enc [facility] [address], [address] [place] [address] Saskia Cottrell, DO Dry & Itchy lips 05/31/2024 MyChart Message Enc [facility] [address], [address] [place] [address] Saskia Cottrell, DO Light headedness from Last [...] often do you attend chur ch or methodist services? Never 08/12/2022 Active Member of Clubs [...] Recorded Patient Health Questionnaire-2 Score 0 07/27/2024 [facility] - Occupational [...] place to sleep or slept in a penitentiary (including now)? No 08/13/2022 Depression Answer Date [...] Comments Blood Pressure 100/70 07/27/2024 9:53 AM COIN MACHINE COLLECTOR Pulse 85 07/27/2024 9:53 AM COIN MACHINE COLLECTOR Temperature 36.3 C (97.3 F) 07/27/2024 9:53 AM COIN MACHINE COLLECTOR Respiratory Rate 18 07/27/2024 9:53 AM COIN MACHINE COLLECTOR Oxygen Saturation 99% 07/27/2024 9:53 AM COIN MACHINE COLLECTOR Inhaled Oxygen Concentration - - Weight 51.3 kg (113 lb 3.2 oz) 07/27/2024 9:53 A M COIN MACHINE COLLECTOR Height 144.8 cm (4' 9 ) 08/16/2023 3:59 PM COIN MACHINE COLLECTOR Body Mass Index 24.5 08/16/2023 3:59 PM COIN MACHINE COLLECTOR Plan of Treatment Health Maintenance Due Date [...] Influenza Adult Completed 04/03/2024, 08/15/2022 PHQ-2 (Physician Jackson) Completed 07/27/2024 Meningococcal B Vaccine Aged Out [...] 07/30/2024 COLLECT.CAPILLARY (FNGR,HEEL,EAR) Routine 07/27/2024 10:08 AM COIN MACHINE COLLECTOR Type 2 diabetes mellitus without complication, without long-term current use of insulin ([facility]) HEMOGLOBIN, GLYCOSYLATED Routine 07/27/2024 Type 2 diabetes mellitus without complication, without long-term current use of insulin ([facility]) from Last 3 Months Results * CT GENERIC (07/30/2024) Anatomical Region Laterality Modality Other 07/30/2024 us Doc Med Group Scanned SCANNING Final Resu lt * HEMOGLOBIN, GLYCOSYLATED (07/27/2024) HGB A1C 4.6 % [facility] 07/27/2024 Saskia Cottrell DO LABORATORY Final Result MG[facility] [place] [address] [address], from Last 3 Months Insurance [facility] Advance Directives * Full Code (Latest Code Status on File) Date Activated Date Inactivated Comments 08/13/2022 1:02 PM 08/15/2022 6:51 PM * Full Code Date Activated Date Inactivated Comments 08/12/2022 9:06 PM 08/13/2022 1:02 PM Care Teams Epic Beacon Analyst Relationship Specialty Start Date End Date Saskia Cottrell DO [address] '[place] [address] PCP - General FAMILY PRACTICE 08/10/21
--- OUTSIDE RECORDS SUMMARY | 2024-08-19 23:59 | XMS_ITS | Encounter Summary ---
Author Organization [facility] Address [address] [place] [address] Care Team Providers Care Roller Varnisher Name Role Phone Saskia Cottrell DO Primary Care Provider [phone] Encounter Details Date Type Department Care Team (Late st Contact Info) Description 03/16/2024 Znapshop Message Enc [facility] Family [facility] - [place] [address], [address] [place] [address] Saskia Cottrell DO [address] [place] [address] Diaper Rash Social History Tobacco Use Types [...] Recorded Patient Health Questionnaire-2 Score 0 08/16/2023 [facility]at ional Health - Occupational [...] place to sleep or slept in a intermediate (including now)? No 08/13/2022 Depression Answer Date [...] Assessment Author Status No 08/12/2022 8:45 PM FLORAL SPECIALIST Activ e * RETIRED Are you blind or do you have serious difficulty seeing, even when wearing glasses? Answer Date of Assessment Author Status No 08/12/2022 8:45 PM FLORAL SPECIALIST Activ e * Do you have serious difficulty walking or climbing stairs? Answer Date of Assessment Author Status No 08/12/2022 8:45 PM FLORAL SPECIALIST Karo Ortega R N Active * Do you have difficulty dressing or bathing? Answer Date of Assessment Author Status No 08/12/2022 8:45 PM Karo Das R N Active * Because of a physical, mental, or emotional condition, do you have difficulty doing errands alone such as visiting a doctor's office or shopping? Answer Date of Assessment Author Status No 08/12/2022 8:45 PM FLORAL SPECIALIST Karo Ortega R N Active documented [...] documented as of this encounter Care Teams Roller Varnisher Relationship Specialty Start Date End Date Saskia Cottrell DO [address] [place] [address] PCP - General FAMILY PRACTICE 08/10/21 documented as of this encounter
[2024-08-20] VITALS (28 sets, daily range): BP systolic 95–138; BP diastolic 64–76; PULSE 76–85; RESP 12–20; TEMP 36.4–36.8; O2SAT 93–100
[2024-08-20 00:06] LABS: Add Urine Microscopic? YES; Appearance Urine Clear (Clear); Basophils Percent Auto 0.2 % (0.2-1.2); Bilirubin Urine Negative (Negative); Blood Urine Negative (Negative); Color Urine Dark Yellow (Yellow); Eosinophils Absolute Auto 0.1 K/mm3 (0-0.3); Eosinophils Percent Auto 1.4 % (0-4.4); Glucose Urine UA Negative (Negative); Hematocrit 43.9 % (37.0-47.0); Hemoglobin 15.4 g/dL (12.0-15.0); Immature Granulocyte Absolute 0.02 K/mm3 (0.00-0.031); Immature Granulocyte Percent A 0.2 % (0-0.5); Ketones Urine 2+ mg/dL (Negative); Leukocyte Esterase Ur Negative LEU/UL (Negative); Lymphocytes Percent Auto 21.7 % (18.3-44.2); Mean Corpuscular HGB Conc 35.1 g/dl (32-36); Mean Corpuscular Hemoglobin 30.5 pg (26-34); Mean Corpuscular Volume 86.9 fl (80-100); Mean Platelet Volume 8.3 fl (7.4-10.4); Monocytes Absolute Auto 0.6 K/mm3 (0.1-0.6); Monocytes Percent Auto 6.8 % (2.6-8.5); Neutrophils Absolute Auto 5.8 K/mm3 (1.3-6.7); Neutrophils Percent Auto 69.7 % (45.5-73.1); Nitrate Urine Negative (Negative); Platelet Count Result 248 k/mm3 (150-375); Protein Urine Negative (Negative); Red Blood Count 5.05 M/mm3 (4.2-5.4); Red Cell Distribution Width 12.8 % (11.5-14.5); Specific Grav Ur 1.026 (1.001-1.035); White Blood Count 8.3 K/mm3 (4.5-10.0); pH Urine 5.5 (5.0-9.0)
[2024-08-20] MEDS: MORPHINE SULFATE (*CRX) 2 MG/ML INJ IV PUSH ×2 (00:12→10:46)
[2024-08-20] MEDS: FAMOTIDINE 20 MG/2 ML VIAL IV PUSH (00:50)
[2024-08-20 01:35] LABS: Alanine Aminotransferase 223 U/L (6-35); Albumin Level 4.1 g/dL (3.5-5.1); Alkaline Phosphatase 86 U/L (38-126); Anion Gap 13 mmol/L (4-12); Aspartate Amino Transferase 448 U/L (14-36); Bilirubin,Total 1.4 mg/dL (0.2-1.3); Blood Urea Nitrogen 7 mg/dL (7-17); Carbon Dioxide 26 mmol/L (22-30); Chloride 101 mmol/L (98-107); Estimated Glomerular Filt Rate > 60; Glucose 161 mg/dL (65-110); Lipase 95 U/L (23-300); Potassium 3.1 mmol/L (3.4-5.0); Sodium 140 mmol/L (137-145)
--- NOTE | 2024-08-20 01:58 | PC.NURSE ---
Patient taken to CT via stretcher at this time.
[2024-08-20 02:16] LABS: Magnesium 2.1 mg/dL (1.6-2.3)
[2024-08-20] MEDS: SODIUM CHLORIDE 0.9% IV 1,000 ML 999 ML IV CONT (02:23)
[2024-08-20] MEDS: POTASSIUM BICARBONATE 25 MEQ TABEF 50 MEQ PO (02:23)
[2024-08-20] MEDS: KCL 20 MEQ/SW 100 ML 100 ML 50 MEQ IVPB (02:23)
--- NOTE | 2024-08-20 03:57 | PC.NURSE ---
Patient c/o pain with potassium infusion, fluids increased and drip slowed to 20ml/hr. Patient tolerating well.
[2024-08-20] MEDS: PANTOPRAZOLE SODIUM IV 40 MG VIAL IV PUSH (05:50)
[2024-08-20] MEDS: PIPERACILLN/TAZ 3.375GM/NS50ML 3.375 GM/50 ML BAG IVPB ×3 (05:51→17:55)
[2024-08-20] MEDS: LACTATED RINGERS 1,000 ML 125 ML IV CONT (06:45)
[2024-08-20 07:57] LABS: Glucose Point of Care 89 mg/dl (65-105)
[2024-08-20 10:22] LABS: Hematocrit 40.5 % (37.0-47.0); Hemoglobin 13.4 g/dL (12.0-15.0); Mean Corpuscular HGB Conc 33.1 g/dl (32-36); Mean Corpuscular Hemoglobin 29.6 pg (26-34); Mean Corpuscular Volume 89.6 fl (80-100); Mean Platelet Volume 8.5 fl (7.4-10.4); Platelet Count Result 211 k/mm3 (150-375); Red Blood Count 4.52 M/mm3 (4.2-5.4); Red Cell Distribution Width 12.7 % (11.5-14.5); White Blood Count 4.9 K/mm3 (4.5-10.0)
[2024-08-20 10:34] LABS: Alanine Aminotransferase 549 U/L (6-35); Albumin Level 4.1 g/dL (3.5-5.1); Alkaline Phosphatase 96 U/L (38-126); Anion Gap 7 mmol/L (4-12); Aspartate Amino Transferase 569 U/L (14-36); Bilirubin,Total 2.2 mg/dL (0.2-1.3); Blood Urea Nitrogen 4 mg/dL (7-17); Calcium 8.8 mg/dL (8.4-10.2); Carbon Dioxide 27 mmol/L (22-30); Chloride 106 mmol/L (98-107); Estimated Glomerular Filt Rate > 60; Glucose 90 mg/dL (65-110); Potassium 4.3 mmol/L (3.4-5.0); Sodium 140 mmol/L (137-145)
--- NOTE | 2024-08-20 11:33 | P.HP_ITS ---
H&P: HPI History of Present Illness Date/Time: 08/20/24 11:33 Chief Complaint: Epigastric abdominal pain Narrative: This is a 28-year-old woman who presented to the ED last night with complaints of epigastric abdominal pain x 4 hours. She has had intermittent episodes of mild epigastric pain over the past month. Typically, her pain resolves with time. She has noticed the pain typically occurs after eating, but is not able to tell if it is typically fatty foods. She had a more severe episode of pain on 07/30/2024 that prompted her to go to the ED for evaluation. Workup showed a normal white blood cell count and elevated AST, ALT, and alk-phos. Total bilirubin was normal. CT scan of the abdomen and pelvis showed no acute intra- abdominal process. She was discharged home with follow-up with her PCP. She did see her PCP and was referred to GI, but has not seen them yet. Yesterday, she had fried chicken for dinner around 6 pm and shortly after she developed epigastric pain. This was more severe than previous episodes. No alleviating factors. She denies nausea, vomiting, diarrhea, or other associated symptoms. Due to the persistent pain, she came into the ED for evaluation. Vital signs were stable. Labs showed a normal white blood cell count and LFTs were elevated. Total bilirubin 1.4, AST 448, ALT 223, and alk-phos 86. Lipase normal. UA negative for UTI. CT scan of the abdomen and pelvis showed a distended gallbladder with probable mild wall thickening, acute cholecystitis is a consideration. She was given 1 dose of IV Zosyn in the ED and started on IV fluids. She has been admitted in the setting for further evaluation of possible acute cholecystitis. The patient continues to have abdominal pain. Her epigastric pain improved after morphine last night, but has started to increase again this morning. No nausea at this time. Her only previous abdominal surgery was a delivery about 2 years ago. She also takes Mounjaro for a history of type 2 diabetes mellitus. She was diagnosed about a year ago and has lost 40 lbs since starting this medication. Review of Systems Review of Systems: All systems reviewed & are unremarkable except as noted in HPI and below PMFSH Past Medical History Medical History Type 2 diabetes mellitus Surgical History Surgical History H/O section Family History Family History Grandparent Breast cancer Father Diabetes mellitus Social History Social History Smoking status: Never smoker Alcohol intake: current Drinks per week: 0 Substance use: never Substance use type: does not use Do You Feel Safe in your Home?: Yes Lack of Transportation: No Lack of Food: Never True Current Housing: I Have Housing Concerned About Future Housing: No Difficulty Paying Gas/Electric Bills: No Difficulty Paying for Meds: No Currently Unemployed: No Education: Bachelor's Degree Difficulty w/ Childcare or Family Care: No Living arrangements: with family Additional living arrangements comments: and child Spiritual care concerns: No Meds Home Medications and Allergies Home Medications ?Medication ?Instructions ?Recorded ?Confirmed ?Type tirzepatide 2.5 mg/0.5 mL 2.5 mg subcut WEEKLY 08/20/24 08/20/24 History subcutaneous pen injector (Yeuntsering) Allergies Allergy/AdvReac Type Severity Reaction Status Date / Time No Known Allergies Allergy Verified 08/19/24 23:47 Vital Signs Vital Signs - 24 hr 08/19/24 23:42 08/19/24 23:57 08/20/24 00:00 Temperature 98.1 F Pulse Rate 103 H Respiratory Rate 17 Blood Pressure 102/83 Pulse Oximetry 100 100 Oxygen Delivery Room Air 08/20/24 00:03 08/20/24 00:15 08/20/24 00:30 Temperature Pulse Rate Respiratory Rate Blood Pressure 138/64 Pulse Oximetry 100 100 100 Oxygen Delivery 08/20/24 00:57 08/20/24 01:00 08/20/24 01:15 Temperature Pulse Rate Respiratory Rate Blood Pressure Pulse Oximetry 99 100 100 Oxygen Delivery 08/20/24 01:30 08/20/24 01:45 08/20/24 02:07 Temperature Pulse Rate Respiratory Rate Blood Pressure Pulse Oximetry 100 100 100 Oxygen Delivery 08/20/24 02:57 08/20/24 03:00 08/20/24 03:15 Temperature Pulse Rate Respiratory Rate Blood Pressure Pulse Oximetry 100 100 100 Oxygen Delivery 08/20/24 03:30 08/20/24 03:56 08/20/24 04:00 Temperature Pulse Rate Respiratory Rate Blood Pressure Pulse Oximetry 100 100 93 Oxygen Delivery 08/20/24 04:28 08/20/24 04:30 08/20/24 04:31 Temperature Pulse Rate Respiratory Rate Blood Pressure 95/67 L Pulse Oximetry 98 99 98 Oxygen Delivery 08/20/24 04:45 08/20/24 05:30 08/20/24 05:54 Temperature Pulse Rate Respiratory Rate Blood Pressure 101/73 Pulse Oximetry 99 100 Oxygen Delivery 08/20/24 06:00 08/20/24 06:01 08/20/24 06:30 Temperature Pulse Rate 76 Respiratory Rate 16 17 Blood Pressure 97/71 L 97/71 L Pulse Oximetry 100 100 100 Oxygen Delivery 08/20/24 06:55 08/20/24 08:00 Temperature 98.2 F Pulse Rate 83 Respiratory Rate 18 Blood Pressure 111/74 Pulse Oximetry 100 Oxygen Delivery Room Air Exam Const: General: comfortable and no acute distress Nutritional Appearance: average body habitus Orientation/consciousness: patient oriented x3 HENMT: Head: normocephalic and atraumatic Ears: hearing grossly normal bila terally Mouth: Yes moist mucous membranes Eyes: General: appearance normal, both eyes and all related structures Pupils: Equal, round and reactive pupils present Neck: Neck: normal visual inspection and full ROM Resp: Effort & Inspection: no respiratory distress Auscultation: clear to auscultation bilaterally Cardio: Rate: regular rate Rhythm: regular rhythm Peripheral pulses: Peripheral pulses 2+ throughout GI: Inspection: non-distended, scar (pfannenstiel), striae and no visible herniation GI Palp: Yes Soft to palpation, Yes Tenderness to palpation present (GI) (RUQ and epigastric area), Yes Guarding due to palpation present (GI) (RUQ), Yes No hepatosplenomegaly present and No Rebound tenderness present Auscultation: normal bowel sounds Skin: General skin exam: normal color Neuro: General: moves all extremities and no focal motor deficits Speech: normal speech Motor exam (neuro): 5/5 motor strength present throughout Extrem: General: normal to inspection and no edema Psych: Mental Status: mental status grossly normal Attitude: cooperative Insight: Good insight present (Psych) Judgement: Good judgement present (Psych) H&P: Results Labs Labs: Short CBC 08/19/24 08/20/24 Range/Units 23:52 10:10 WBC 8.3 4.9 (4.5-10.0) K/mm3 Hgb 15.4 H 13.4 (12.0-15.0) g/dL Hct 43.9 40.5 (37.0-47.0) % Plt Count 248 211 (150-375) k/mm3 BMP 08/20/24 08/20/24 01:17 10:10 Sodium 140 140 Potassium 3.1 L 4.3 Chloride 101 106 Carbon Dioxide 26 27 BUN 7 4 L Creatinine 0.62 L 0.56 L Glucose 161 H 90 Calcium 9.0 8.8 Liver Function 08/20/24 08/20/24 Range/Units 01:17 10:10 Total Bilirubin 1.4 H 2.2 H (0.2-1.3) mg/dL AST 448 H 569 H (14-36) U/L ALT 223 H 549 H (6-35) U/L Alkaline Phosphatase 86 96 (38-126) U/L Albumin 4.1 4.1 (3.5-5.1) g/dL Urine 08/19/24 Range/Units 23:52 Urine Color Dark yellow (Yellow) Urine Appearance Clear (Clear) Urine pH 5.5 (5.0-9.0) Ur Specific [place] 1.026 (1.001-1.035) Urine Protein Negative (Negative) mg/dL Urine Glucose (UA) Negative (Negative) mg/dL Imaging CT scan - abdomen: Radiologist's impression: ITS Impressions Abdomen/Pelvis CT 08/20/24 06:33 Impression: Distended gallbladder with probable mild wall thickening. Acute cholecystitis is a consideration. Correlate clinically. Consider ultrasound and/or HIDA scan for further evaluation as indicated. Abdomen Ultrasound 08/20/24 10:50 IMPRESSION: 1. Cholelithiasis and positive sonographic Gutierres sign, but no gallbladder distention or gallbladder wall thickening to suggest acute cholecystitis. 2. Mildly dilated common duct. Assessment and Plan Assessment and plan (1) Transaminitis: Code(s): R74.01 - Elevation of levels of liver transaminase levels Status: Acute (2) Hyperglycemia due to diabetes mellitus: Code(s): E11.65 - Type 2 diabetes mellitus with hyperglycemia Status: Acute (3) Hypokalemia: Code(s): E87.6 - Hypokalemia Status: Acute Assessment and Plan: Replaced on admission when potassium was 3.1. After replacement, potassium is up to 4.3 today. Plan Diagnosis: * Cholelithiasis - CT showed mild gallbladder distention and possible mild wall thickening. No gallstones. She has been started on IV Zosyn for possible acute cholecystitis. RUQ ultrasound ordered this morning as well as repeat labs. Her ultrasound showed cholelithiasis with a positive sonographic Gutierres's sign. Her common bile duct is also dilated to 7 mm. Her labs showed her total bilirubin went up from 1.4 to 2.2 this morning. This is concerning for a pos sible common bile duct stone. Will order an MRCP. Discussed with the patient that if the MRCP shows a common bile duct stone, then we will consult GI for possible ERCP. If there is no choledocholithiasis, then we could consider proceeding with a laparoscopic cholecystectomy possibly tomorrow. * Transaminitis - see plan above * Type 2 diabetes mellitus - She is currently NPO. Will hold her home medication. Placed orders for hypoglycemia protocol and accuchecks routinely for monitoring. She has maintenance fluids running with D5NS @ 100 mL/hr while NPO. Continue to monitor. I have discussed the patient's case and plan of care with Dr. Mitchell. Quality VTE Prophylaxis VTE prophylaxis: mechanical ordered
[2024-08-20 11:43] LABS: Glucose Point of Care 75 mg/dl (65-105)
[2024-08-20] MEDS: DEXTROSE 5%/0.9% SOD CHL 1,000 ML 100 ML IV CONT (12:22)
[2024-08-20 16:51] LABS: Glucose Point of Care 103 mg/dl (65-105)
[2024-08-20 20:35] LABS: Glucose Point of Care 103 mg/dl (65-105)
[2024-08-21] MEDS: PIPERACILLN/TAZ 3.375GM/NS50ML 3.375 GM/50 ML BAG IVPB ×4 (00:07→17:00)
[2024-08-21] MEDS: DEXTROSE 5%/0.9% SOD CHL 1,000 ML 100 ML IV CONT ×2 (02:32→17:30)
[2024-08-21 06:00] VITALS: BP 100/58; PULSE 66; RESP 14; TEMP 36.5; O2SAT 100
[2024-08-21 07:59] LABS: Glucose Point of Care 96 mg/dl (65-105)
[2024-08-21 08:15] VITALS: BP 113/72; PULSE 78; RESP 16; TEMP 36.5; O2SAT 100
[2024-08-21 09:09] LABS: Basophils Percent Auto 0.5 % (0.2-1.2); Eosinophils Absolute Auto 0.1 K/mm3 (0-0.3); Eosinophils Percent Auto 3.2 % (0-4.4); Hemoglobin 12.8 g/dL (12.0-15.0); Immature Granulocyte Absolute 0.01 K/mm3 (0.00-0.031); Immature Granulocyte Percent A 0.3 % (0-0.5); Lymphocytes Absolute Auto 1.16 K/mm3 (0.9-3.2); Lymphocytes Percent Auto 31.4 % (18.3-44.2); Mean Corpuscular HGB Conc 32.8 g/dl (32-36); Mean Corpuscular Hemoglobin 30.1 pg (26-34); Mean Corpuscular Volume 91.8 fl (80-100); Mean Platelet Volume 8.5 fl (7.4-10.4); Monocytes Absolute Auto 0.2 K/mm3 (0.1-0.6); Monocytes Percent Auto 5.9 % (2.6-8.5); Neutrophils Absolute Auto 2.2 K/mm3 (1.3-6.7); Neutrophils Percent Auto 58.7 % (45.5-73.1); Platelet Count Result 186 k/mm3 (150-375); Red Blood Count 4.25 M/mm3 (4.2-5.4); Red Cell Distribution Width 12.9 % (11.5-14.5); White Blood Count 3.7 K/mm3 (4.5-10.0)
[2024-08-21 09:23] LABS: Alanine Aminotransferase 392 U/L (6-35); Albumin Level 3.8 g/dL (3.5-5.1); Alkaline Phosphatase 76 U/L (38-126); Anion Gap 6 mmol/L (4-12); Aspartate Amino Transferase 161 U/L (14-36); Calcium 8.5 mg/dL (8.4-10.2); Carbon Dioxide 25 mmol/L (22-30); Chloride 109 mmol/L (98-107); Estimated Glomerular Filt Rate > 60; Glucose 92 mg/dL (65-110); Potassium 3.5 mmol/L (3.4-5.0); Sodium 140 mmol/L (137-145)
[2024-08-21 09:25] LABS: Blood Urea Nitrogen < 2 mg/dL (7-17)
[2024-08-21 11:46] LABS: Glucose Point of Care 75 mg/dl (65-105)
[2024-08-21 14:00] VITALS: BP 104/65; PULSE 69; RESP 16; TEMP 36.7; O2SAT 100
--- NOTE | 2024-08-21 14:23 | WPDCN ---
Assessment and Plan Assessment and plan (1) Cholecystitis: Code(s): K81.9 - Cholecystitis, unspecified Status: Acute Assessment and Plan: Patient reports 2 week of symptoms, feeling well prior to that. 08/21 MRCP 1. Cholelithiasis. Gallbladder wall thickening may be seen with acute or chronic cholecystitis. 2. Normal common duct. No choledocholithiasis. Surgery planning OR, likely tomorrow (2) Transaminitis: Code(s): R74.01 - Elevation of levels of liver transaminase levels Status: Acute Assessment and Plan: LFT's improving. Likely transient obstruction given gallstones Bili 2.2>1, AST 569>161, ALT 549>392 , Alk phos 96>76 --follow LFT's in AM (3) Hyperglycemia due to diabetes mellitus: Code(s): E11.65 - Type 2 diabetes mellitus with hyperglycemia Status: Acute Assessment and Plan: Takes mounjaro, next dose due tomorrow. --Discussed holding mounjaro while inpatient --Continue SSI PRN --Clear liquid diet today per surgery --NPO post midnight. Agree with D5 overnight HPI Data of Consult Date/Time: 08/21/24 14:23 Requesting Physician: Dr. Mitchell Primary Care Provider: Saskia Cottrell, Consult Narrative Narrative: Stefani Velasco is a 28 year old female hx diabetes, who presented to the hospital for complaints of epigastric abdominal pain x4 hours. She reported symptoms 2 weeks prior and an ER visit for symptoms. Subsequently has been having intermittent abdominal pain, as well as nausea/vomiting. Last had emesis 2 AM, has since been NPO. VSS in the ED. Labs showed a potassium of 3.5, normal creatinine. WBC 8.3, normal H&H. LFT's elevated but downtrending: Bili 1.4<2.2, AST 448<569>161, ALT 223<549>392, Alk phos 86<96>76. Holding mounjaro. Next dose due tomorrow. Blood sugars controlled, so holding during admission 08/20 CT abd/pelvis showed: Distended gallbladder with probable mild wall thickening. Acute cholecystitis is a consideration. Correlate clinically. Consider ultrasound and/or HIDA scan for further evaluation as indicated 08/20 abd US 1. Cholelithiasis and positive sonographic Gutierres sign, but no gallbladder distention or gallbladder wall thickening to suggest acute cholecystitis. 2. Mildly dilated common duct. 08/21 MCRCP 1. Cholelithiasis. Gallbladder wall thickening may be seen with acute or chronic cholecystitis. 2. Normal common duct. No choledocholithiasis. [facility] Past Medical History Medical History Type 2 diabetes mellitus Surgical History Surgical History H/O section Family History Family History Grandparent Breast cancer Father Diabetes mellitus Social History Social History Smoking status: Never smoker Alcohol intake: current Drinks per week: 0 Substance use: never Substance use type: does not use Do You Feel Safe in your Home?: Yes Lack of Transportation: No Lack of Food: Never True Current Housing: I Have Housing Concerned About Future Housing: No Difficulty Paying Gas/Electric Bills: No Difficulty Paying for Meds: No Currently Unemployed: No Education: Bachelor's Degree Difficulty w/ Childcare or Family Care: No Living arrangements: with family Additional living arrangements comments: and child Spiritual care concerns: No Meds Home Medications and Allergies Home Medications ?Medication ?Instructions ?Recorded ?Confirmed ?Type tirzepatide 2.5 mg/0.5 mL 2.5 mg subcut WEEKLY 08/20/24 08/20/24 History subcutaneous pen injector (Mounjaro) hydrocodone 5 mg-acetaminophen 325 1 - 2 tablet PO Q4H PRN pain #15 08/22/24 Rx mg tablet tabs Allergies Allergy/AdvReac Type Severity Reaction Status Date / Time No Known Allergies Allergy Verified 08/22/24 07:59 Vital Signs Vital Signs - 24 hr 08/20/24 20:00 08/20/24 21:10 08/21/24 06:00 Temperature 97.7 F 97.7 F Pulse Rate 82 66 Respiratory Rate 12 14 Blood Pressure 110/76 100/58 L Pulse Oximetry 100 100 Oxygen Delivery Room Air 08/21/24 08:15 Temperature 97.7 F Pulse Rate 78 Respiratory Rate 16 Blood Pressure 113/72 Pulse Oximetry 100 Oxygen Delivery Exam Narrative: General - Awake and alert. No acute distress Eyes - PERRLA, EOM intact ENT - No thrush, No erythema Neck - No noticeable or palpable swelling Lymph Nodes - No lymphadenopathy Cardiovascular - RRR no m/r/g, no JVD Lungs: Clear to auscultation, No wheezing, use of accessory muscles, no crackles Skin - Skin warm and dry, no wounds or rashes Abdomen - Normal bowel sounds, abdomen soft and nontender Extremities - No edema, cyanosis or clubbing Musculoskeletal - 5/5 strength, normal range of motion, no swollen or erythematous joints. Neurological ? Alert and oriented x 3, CN 2-12 grossly intact. Psych: Normal mood and affect Results Labs 08/22/24 07:07 08/22/24 07:07 Labs: Short CBC 08/21/24 Range/Units 08:53 WBC 3.7 L (4.5-10.0) K/mm3 Hgb 12.8 (12.0-15.0) g/dL Hct 39.0 (37.0-47.0) % Plt Count 186 (150-375) k/mm3 BMP 08/21/24 08:53 Sodium 140 Potassium 3.5 Chloride 109 H Carbon Dioxide 25 BUN < 2 L Creatinine 0.65 L Glucose 92 Calcium 8.5 Liver Function 08/21/24 Range/Units 08:53 Total Bilirubin 1.0 (0.2-1.3) mg/dL AST 161 H (14-36) U/L ALT 392 H (6-35) U/L Alkaline Phosphatase 76 (38-126) U/L Albumin 3.8 (3.5-5.1) g/dL
[2024-08-21] MEDS: POTASSIUM CHLORIDE 20 MEQ ER TABLET PO (15:21)
--- NOTE | 2024-08-21 15:52 | P.PNGS_ITS ---
Progress Note: A&P Assessment and Plan (1) Cholelithiasis: Code(s): K80.20 - Calculus of gallbladder without cholecystitis without obstruction Status: Acute Assessment and Plan: * MRCP showed gallstones with gallbladder wall thickening, consistent with acute and/or chronic cholecystitis, no choledocholithiasis. We would recommend proceeding with a laparoscopic cholecystectomy by Dr. Mitchell tomorrow. She has been added to the surgery schedule for tomorrow morning and we will allow her to have clear liquids this evening and NPO after midnight. Description of the procedure, risks, benefits, alternatives, and expected recovery were discussed with the patient in detail. We discussed the risks of bile leak and bile duct injury, liver/bowel injury, bleeding, and infection. Also discussed the possibility of having to convert to an open procedure if necessary. She understands and agrees to proceed. (2) Transaminitis: Code(s): R74.01 - Elevation of levels of liver transaminase levels Status: Acute Assessment and Plan: * LFTs coming down today with total bilirubin back down to normal. MRCP showed no common duct stone. She likely passed a stone. See plan above. (3) Hyperglycemia due to diabetes mellitus: Code(s): E11.65 - Type 2 diabetes mellitus with hyperglycemia Status: Acute Plan I have discussed the patient's case and plan of care with Dr. Mitchell. Subjective Subjective Date/Time Seen: 08/21/24 15:52 Interval history: Patient has not had any abdominal pain since yesterday afternoon. She denies any nausea or other symptoms. She is feeling much better today. Her labs showed her LFTs going down and her total bilirubin down to 1.0. Exam Const: General: comfortable and no acute distress Orientation/consciousness: patient oriented x3 GI: Inspection: non-distended GI Palp: Yes Soft to palpation, Yes Tenderness to palpation present (GI) (Right upper quadrant) and No Guarding due to palpation present (GI) Auscultation: normal bowel sounds Objective Data Vital Signs Vital Signs: Vital Signs - 24 hr 08/20/24 20:00 08/20/24 21:10 08/21/24 06:00 Temperature 97.7 F 97.7 F Pulse Rate 82 66 Respiratory Rate 12 14 Blood Pressure 110/76 100/58 L Pulse Oximetry 100 100 Oxygen Delivery Room Air 08/21/24 08:15 08/21/24 14:00 Temperature 97.7 F 98.1 F Pulse Rate 78 69 Respiratory Rate 16 16 Blood Pressure 113/72 104/65 Pulse Oximetry 100 100 Oxygen Delivery Intake/Output Intake/Output: Intake & Output 08/18/24 08/19/24 08/20/24 08/21/24 23:59 23:59 23:59 23:59 Intake Total 2490.0 250 Balance 2490.0 250 Meds/Results Medications: Active Medications Generic Name Dose Route Start Last Admin Trade Name Freq PRN Reason Stop Dose Admin Dextrose 12.5 gm 08/20/24 05:35 Dextrose 50% 25 Gm/50 Ml Syringe IV PUSH PRN PRN Hypoglycemia Protocol Glucagon 1 mg 08/20/24 05:35 Glucagon For Inj 1 Mg Vial IM PRN PRN Hypoglycemia Protocol Glucose 15 gm 08/20/24 05:35 Glucose Oral Gel 15 Gm Of Glucse In 37.5 Gm Tube PO PRN PRN Hypoglycemia Protocol Dextrose 1,000 mls @ 100 mls/hr 08/20/24 05:35 Dextrose 5% 1,000 Ml IVPB PRN PRN Hypoglycemia Protocol Piperacillin/Tazobactam/Dextrose 3.375 gm in 50 mls @ 100 mls/hr 08/20/24 12:00 08/21/24 11:43 Zosyn 3.375 Gm/Ns 50 Ml IVPB Infused Q6H MARCELLO Infusion Dextrose/Sodium Chloride 1,000 mls @ 100 mls/hr 08/20/24 11:50 08/21/24 02:32 Dextrose 5% Sodium Chloride 0.9% IV CONT 100 mls/hr .Q10H MARCELLO Administration Morphine Sulfate 2 mg 08/20/24 05:35 08/20/24 10:46 Morphine Sulfate (*Crx) 2 Mg/Ml Inj IV PUSH 2 mg Q2H PRN Administration Pain Rated 7-10 Ondansetron HCl 4 mg 08/20/24 05:35 Ondansetron Inj 4 Mg/2 Ml Vial IV PUSH Q4H PRN Nausea Radiology Results: ITS Impressions Abdomen/Pelvis CT 08/20/24 06:33 Impression: Distended gallbladder with probable mild wall thickening. Acute cholecystitis is a consideration. Correlate clinically. Consider ultrasound and/or HIDA scan for further evaluation as indicated. Abdomen Ultrasound 08/20/24 10:50 IMPRESSION: 1. Cholelithiasis and positive sonographic Gutierres sign, but no gallbladder distention or gallbladder wall thickening to suggest acute cholecystitis. 2. Mildly dilated common duct. MRCP 08/21/24 13:19 IMPRESSION: 1. Cholelithiasis. Gallbladder wall thickening may be seen with acute or chronic cholecystitis. 2. Normal common duct. No choledocholithiasis. Labs Labs: Laboratory Results - last 24 hr 08/20/24 08/20/24 08/21/24 16:48 19:48 07:57 WBC RBC Hgb Hct MCV MCH MCHC RDW Plt Count MPV Immature Gran % (Auto) Neut % (Auto) Lymph % (Auto) [place] % (Auto) Eos % (Auto) Baso % (Auto) Lymph # (Auto) [place] # (Auto) Eos # (Auto) Baso # (Auto) Abs Immat Gran (auto) Absolute Neuts (auto) Absolute Nucleated RBC Nucleated RBC % Sodium Potassium Chloride Carbon Dioxide Anion Gap BUN Creatinine Estim Creat Clear Calc Estimated GFR Glucose POC Capillary Glucose 103 103 96 Calcium Total Bilirubin AST ALT Alkaline Phosphatase Total Protein Albumin 08/21/24 08/21/24 08:53 11:43 WBC 3.7 L RBC 4.25 Hgb 12.8 Hct 39.0 MCV 91.8 MCH 30.1 MCHC 32.8 RDW 12.9 Plt Count 186 MPV 8.5 Immature Gran % (Auto) 0.3 Neut % (Auto) 58.7 Lymph % (Auto) 31.4 [place] % (Auto) 5.9 Eos % (Auto) 3.2 Baso % (Auto) 0.5 Lymph # (Auto) 1.16 [place] # (Auto) 0.2 Eos # (Auto) 0.1 Baso # (Auto) 0.0 Abs Immat Gran (auto) 0.01 Absolute Neuts (auto) 2.2 Absolute Nucleated RBC 0.000 Nucleated RBC % 0.0 Sodium 140 Potassium 3.5 Chloride 109 H Carbon Dioxide 25 Anion Gap 6 BUN < 2 L Creatinine 0.65 L Estim Creat Clear Calc Not Reportable Estimated GFR > 60 Glucose 92 POC Capillary Glucose 75 Calcium 8.5 Total Bilirubin 1.0 AST 161 H ALT 392 H Alkaline Phosphatase 76 Total Protein 7.0 Albumin 3.8
[2024-08-21 16:47] LABS: Glucose Point of Care 122 mg/dl (65-105)
[2024-08-21 19:57] VITALS: PULSE 69; RESP 16; O2SAT 100
[2024-08-21 20:29] LABS: Glucose Point of Care 85 mg/dl (65-105)
[2024-08-21 21:35] VITALS: BP 113/82; PULSE 71; RESP 16; TEMP 36.4; O2SAT 100
[2024-08-22] VITALS (12 sets, daily range): BP systolic 90–130; BP diastolic 47–92; PULSE 69–111; RESP 14–100; TEMP 35.9–36.7; O2SAT 98–100
[2024-08-22] MEDS: PIPERACILLN/TAZ 3.375GM/NS50ML 3.375 GM/50 ML BAG IVPB ×2 (00:01→04:54)
[2024-08-22] MEDS: DEXTROSE 5%/0.9% SOD CHL 1,000 ML 100 ML IV CONT (04:54)
[2024-08-22 07:14] LABS: Hematocrit 39.2 % (37.0-47.0); Hemoglobin 13.1 g/dL (12.0-15.0); Mean Corpuscular HGB Conc 33.4 g/dl (32-36); Mean Corpuscular Hemoglobin 30.3 pg (26-34); Mean Corpuscular Volume 90.5 fl (80-100); Mean Platelet Volume 8.3 fl (7.4-10.4); Platelet Count Result 181 k/mm3 (150-375); Red Blood Count 4.33 M/mm3 (4.2-5.4); Red Cell Distribution Width 12.7 % (11.5-14.5); White Blood Count 3.8 K/mm3 (4.5-10.0)
[2024-08-22 07:26] LABS: Alanine Aminotransferase 273 U/L (6-35); Albumin Level 3.9 g/dL (3.5-5.1); Alkaline Phosphatase 69 U/L (38-126); Anion Gap 6 mmol/L (4-12); Aspartate Amino Transferase 63 U/L (14-36); Bilirubin,Total 0.9 mg/dL (0.2-1.3); Calcium 8.9 mg/dL (8.4-10.2); Carbon Dioxide 27 mmol/L (22-30); Chloride 108 mmol/L (98-107); Estimated Glomerular Filt Rate > 60; Glucose 97 mg/dL (65-110); Potassium 4.1 mmol/L (3.4-5.0); Sodium 141 mmol/L (137-145)
[2024-08-22] MEDS: LACTATED RINGERS 1,000 ML 30 ML IV CONT ×2 (07:30→11:33)
--- NOTE | 2024-08-22 07:40 | PC.NURSE ---
To OR per [GEOFF ], IV [ ]. Report given to [
--- NOTE | 2024-08-22 07:41 | PC.NURSE ---
To OR per [ ], IV [ ]. Report given to BY CAR WIPER
[2024-08-22 08:42] LABS: Blood Urea Nitrogen < 2 mg/dL (7-17)
--- NOTE | 2024-08-22 08:57 | WPDHPUPDATE1 ---
History and Physical Update Update Date/Time: 08/22/24 08:57 History and Physical has been reviewed, including an updated exam of the patient. There are NO changes in the patient's condition. Risks, benefits, and alternatives have been discussed and questions answered. Patient agrees to proceed with procedure.
--- NOTE | 2024-08-22 09:34 | WPDANESEPPF ---
Anes - Initial Pre Proc Eval Procedure: Operation Date: 08/22/24 09:00 Proposed Procedures p Laparoscopic Cholecystectomy, Possible Open - Darshan Mitchell MD Date/Time: 08/22/24 09:34 Surgeon: NEVIN Lozada Pre Op Diagnosis: Cholecystitis Patient Data Age: 28 Gender: F Height: 1.5 m Weight: 50 kg Last Vital Signs Temp 97.9 F 08/22/24 06:00 Pulse 69 08/22/24 06:00 Resp 16 08/22/24 06:00 BP 90/49 L 08/22/24 06:00 Pulse Ox 100 08/22/24 06:00 O2 Del Method Room Air 08/21/24 19:57 Allergies Allergy/AdvReac Type Severity Reaction Status Date / Time No Known Allergies Allergy Verified 08/22/24 07:59 Home Medications ?Medication ?Instructions ?Recorded ?Confirmed ?Type tirzepatide 2.5 mg/0.5 mL 2.5 mg subcut WEEKLY 08/20/24 08/20/24 History subcutaneous pen injector (Yeuntsering) Laboratory Tests 08/21/24 08/21/24 08/21/24 11:43 16:45 20:22 WBC RBC Hgb Hct MCV MCH MCHC RDW Plt Count MPV Sodium Potassium Chloride Carbon Dioxide Anion Gap BUN Creatinine Estim Creat Clear Calc Estimated GFR Glucose POC Capillary Glucose 75 mg/dl 122 H mg/dl 85 mg/dl (65-105) (65-105) (65-105) Calcium Total Bilirubin AST ALT Alkaline Phosphatase Total Protein Albumin Blood Type Antibody Screen 08/22/24 07:07 WBC 3.8 L K/mm3 (4.5-10.0) RBC 4.33 M/mm3 (4.2-5.4) Hgb 13.1 g/dL (12.0-15.0) Hct 39.2 % (37.0-47.0) MCV 90.5 fl (80-100) MCH 30.3 pg (26-34) MCHC 33.4 g/dl (32-36) RDW 12.7 % (11.5-14.5) Plt Count 181 k/mm3 (150-375) MPV 8.3 fl (7.4-10.4) Sodium 141 mmol/L (137-145) Potassium 4.1 mmol/L (3.4-5.0) Chloride 108 H mmol/L (98-107) Carbon Dioxide 27 mmol/L (22-30) Anion Gap 6 mmol/L (4-12) BUN < 2 L mg/dL (7-17) Creatinine 0.66 L mg/dL (0.7-1.0) Estim Creat Clear Calc Not Reportable Estimated GFR > 60 (59 - ) Glucose 97 mg/dL (65-110) POC Capillary Glucose Calcium 8.9 mg/dL (8.4-10.2) Total Bilirubin 0.9 mg/dL (0.2-1.3) AST 63 H U/L (14-36) ALT 273 H U/L (6-35) Alkaline Phosphatase 69 U/L (38-126) Total Protein 7.0 g/dL (6.3-8.2) Albumin 3.9 g/dL (3.5-5.1) Blood Type O Positive Antibody Screen Negative Patient hx anesthesia problems: none Family hx anesthesia problems: none Results Review: All pre-operative results and documents have been reviewed as part of the pre-operative evaluation. [facility] Past Medical History Medical History Type 2 diabetes mellitus Surgical History Surgical History H/O section Family History Family History Grandparent Breast cancer Father Diabetes mellitus Social History Social History Smoking status: Never smoker Alcohol intake: current Drinks per week: 0 Substance use: never Substance use type: does not use Do You Feel Safe in your Home?: Yes Lack of Transportation: No Lack of Food: Never True Current Housing: I Have Housing Concerned About Future Housing: No Difficulty Paying Gas/Electric Bills: No Difficulty Paying for Meds: No Currently Unemployed: No Education: Bachelor's Degree Difficulty w/ Childcare or Family Care: No Living arrangements: with family Additional living arrangements comments: and child Spiritual care concerns: No Anes - Eval Final PreProcedure Day of Procedure 08/22/24 09:34 Patient weight: normal Lungs: normal air movement Airway: Mallampati scale class II Neurological: alert and oriented Last oral intake: >/= 8 hours ASA classification: II Emergent: no Anesthetic plan: proceed Anesthesia type and monitoring: general ETT and standard monitoring Results Review: All pre-operative results and documents have been reviewed as part of the pre-operative evaluation. DM 2 on mounjaro, hyperlipidemia, diet controlled. Informed Consent: The patient's anesthetic plan and its attendant risks and benefits were discussed with the patient/family/POA. Questions were solicited and answers provided to the satisfaction of the patient/family/POA.
[2024-08-22] MEDS: BUPivacaine HCL 0.5% PF 30 ML VIAL INFILTRATE (10:11)
[2024-08-22] MEDS: LIDO 1%/EPINEPHRINE 1:100,000 50 ML VIAL 30 ML INFILTRATE (10:11)
[2024-08-22] MEDS: KETOROLAC 15 MG/ML VIAL (*BKC) IV PUSH (10:31)
--- NOTE | 2024-08-22 11:04 | W.PM.PROC2 ---
Procedure Note - Detailed Date of Procedure 08/22/24 Pre-op Diagnosis Biliary colic secondary to cholelithiasis Elevated liver enzymes Post-op Diagnosis Same Procedure Performed Laparoscopic cholecystectomy Surgeon Darshan Mitchell MD Director Metabolism Judy Zelaya [facility] Anesthesia General Indications Patient is a 28-year-old female who was admitted to the hospital severe epigastric and right upper quadrant abdominal pain. On CT scan she was noted to have mild thickening of the gallbladder wall and a common bile duct of 6mm. AST, ALT, and alkaline phosphatase were elevated. Total bilirubin was slightly elevated 1.4. The next day her pain was improved but her LFTs increased further to a total bilirubin 2.4 with further elevations in her AST, ALT, and alkaline phosphatase. Abdominal ultrasound was then performed showing cholelithiasis but normal-appearing gallbladder wall. Common bile duct was 8mm on the ultrasound. It was thought that she may have a common bile duct stone so an MRCP was performed. This showed no common bile duct stone. Gallstones were noted in the gallbladder without obvious evidence of acute cholecystitis. Her liver enzymes rapidly decreased which may suggest that she has passed a small common bile duct stone. She presents now for a laparoscopic cholecystectomy. Findings The gallbladder was mildly distended but the gallbladder wall was relatively normal in appearance. There were no adhesions of the stomach, duodenum, or omentum to the gallbladder wall. There is no erythema to suggest acute inflammation. Small gallstones were palpated in the gallbladder after was removed. Gallbladder gallstones with pathology for examination. Description of Procedure After informed consent was obtained patient was brought to the operating room she was placed supine position and general endotracheal anesthesia was administered. The abdomen was then prepped and draped usual sterile fashion. A time-out was then performed correctly identifying the patient as well as procedure to be performed. She was already on scheduled IV antibiotics. I entered the abdomen left upper quadrant utilizing a 5mm Optiview port. Once inside the abdomen insufflated to adequate pneumoperitoneum of 15mmHg of CO2. Looking the area the umbilicus there were no adhesions directly at the umbilicus. There was 1 small omental adhesions below the umbilicus which was not going to obscure my view to place more ports. I then placed a 5mm periumbilical trocar port and then a 10mm epigastric trocar port and 2 more 5mm right subcostal trocar ports all under direct visualization. Laparoscopic then switched over to the periumbilical trocar port site and then looking to the upper portions of the abdomen there was 1 adhesion of the omentum to the right side of the liver. This was released easily with electrocautery. The gallbladder was visualized and it was mildly dilated but there was no significant acute inflammation of the gallbladder wall. Gallbladder itself laparoscopic grasper at the dome and elevated over the right half liver towards the right shoulder. A 2nd grasper used to hold the gallbladder at the infundibulum. I then proceeded to strip down the visceral peritoneum off of the infundibular gallbladder to identify the cystic duct. The cystic duct appeared to be of normal diameter without a stone in it. I dissected out the cystic duct circumferentially. Cystic artery was identified and dissected out circumferentially as well. Posterior wall the gallbladder at the infundibulum dissected free liver into the critical view was obtained. At this point I placed 2 clips proximally cystic duct and 2 clips distally high on infundibular gallbladder. Cystic duct was then divided Endo Di. The cystic artery was then clipped and divided in similar fashion. The gallbladder was resected off the liver utilized electrocautery. There was no spillage of bile or gallstones. The gallbladder was then placed into an Endo-Catch bag and brought out through the epigastric port site. Gallbladder and contents were sent to pathology for examination. I then irrigated out the right upper quadrant the abdomen gallbladder fossa with sterile saline solution. Hemostasis in the gallbladder bed was achieved electrocautery. I then aspirated the fluid from the right right upper quadrant of the abdomen and from the pelvis. I then removed all the trocar ports under direct visualization all port sites appeared hemostatic. The abdomen was then allowed to decompress. I then irrigated the port sites sterile saline solution hemostasis was good. I then closed the epigastric 10mm trocar port fascial defect utilizing 0 Vicryl suture at the fascial level. The skin edges in all the port sites were then approximated utilizing a running subcuticular 4 Monocryl suture. The incisions were then cleaned the skin glue sterile dressings were applied. The patient tolerated the procedure well no complications. All sponges, needles, and instrument counts were correct at the end procedure. EBL was 10___cc. The patient was awakened and taken to recovery in stable and satisfactory condition. Implants Non Estimated Blood Loss 10 Urine Output 0 Drains No Packing No Pathology Yes (Gallbladder and contents to pathology) Complications No immediate complications Condition Stable Disposition PACU [facility] Billing Surgery - Charge Forward: Surgery Billing
[2024-08-22 11:11] LABS: Glucose Point of Care 119 mg/dl (65-105)
[2024-08-22] MEDS: fentaNYL CITRATE INJ (*CRX) 100 MCG/2 ML VIAL 25 MCG IV PUSH (11:36)
--- NOTE | 2024-08-22 11:59 | PC.NURSE ---
Returned from OR per [ ]. Report received from [HERO].
[2024-08-22] MEDS: HYDROcodone/acetaminophen (*CRX) 5-325 MG TABLET 1 TAB PO (12:40)
--- NOTE | 2024-08-22 12:55 | P.CONIM_ITS ---
Assessment and Plan Assessment and plan (1) Cholecystitis: Code(s): K81.9 - Cholecystitis, unspecified Status: Acute Assessment and Plan: Patient reports 2 week of symptoms, feeling well prior to that. 08/21 MRCP 1. Cholelithiasis. Gallbladder wall thickening may be seen with acute or chronic cholecystitis. 2. Normal common duct. No choledocholithiasis. Surgery planning OR, likely tomorrow 08/22/24: * OR today for Lap Ilene. * Pt doing well in the immediate post-operative course. * PRN pain meds and anti-emetics ordered. * Surgery following. (2) Transaminitis: Code(s): R74.01 - Elevation of levels of liver transaminase levels Status: Acute Assessment and Plan: LFT's improving Bili 2.2>1, AST 569>161, ALT 549>392 , Alk phos 96>76 --follow LFT's in AM 08/22/24: * Pt with rapid improvement in transaminases even prior to surgery. * Suspect there will be further decline. * Trend (3) Hyperglycemia due to diabetes mellitus: Code(s): E11.65 - Type 2 diabetes mellitus with hyperglycemia Status: Acute Assessment and Plan: Takes mounjaro, next dose due tomorrow. --Discussed holding mounjaro while inpatient --Continue SSI --Clear liquid diet today per surgery --NPO post midnight. Agree with D5 overnight 08/22/24: * Continue to hold Mounjaro and utilize SSI. * Good control. Fasting glucose today is 97. HPI Date of Consult Consult date: 08/22/24 Requesting Physician: NEVIN Lozada Primary Care Provider: Saskia Cottrell, Consult Narrative Narrative: Stefani Velasco is a 28 year old female who underwent a Laparoscopic Cholecystectomy today. She is otherwise without any new complaints or other new symptoms. She appears comfortable at this time and surgery is following. Review of Systems 2 Review of Systems: All systems reviewed & are unremarkable except as noted in HPI and below PMFSH Past Medical History Medical History Type 2 diabetes mellitus Surgical History Surgical History H/O section Family History Family History Grandparent Breast cancer Father Diabetes mellitus Social History Social History Smoking status: Never smoker Alcohol intake: current Drinks per week: 0 Substance use: never Substance use type: does not use Do You Feel Safe in your Home?: Yes Lack of Transportation: No Lack of Food: Never True Current Housing: I Have Housing Concerned About Future Housing: No Difficulty Paying Gas/Electric Bills: No Difficulty Paying for Meds: No Currently Unemployed: No Education: Bachelor's Degree Difficulty w/ Childcare or Family Care: No Living arrangements: with family Additional living arrangements comments: and child Spiritual care concerns: No Meds Home Medications and Allergies Home Medications ?Medication ?Instructions ?Recorded ?Confirmed ?Type tirzepatide 2.5 mg/0.5 mL 2.5 mg subcut WEEKLY 08/20/24 08/20/24 History subcutaneous pen injector (Yeuntsering) hydrocodone 5 mg-acetaminophen 325 1 - 2 tablet PO Q4H PRN pain #15 08/22/24 Rx mg tablet tabs Allergies Allergy/AdvReac Type Severity Reaction Status Date / Time No Known Allergies Allergy Verified 08/22/24 07:59 Vital Signs Vital Signs - 24 hr 08/21/24 14:00 08/21/24 19:57 08/21/24 21:35 Temperature 98.1 F 97.6 F Pulse Rate 69 69 71 Respiratory Rate 16 16 16 Blood Pressure 104/65 113/82 Pulse Oximetry 100 100 100 Oxygen Delivery Room Air Oxygen Flow Rate 08/22/24 06:00 08/22/24 07:30 08/22/24 10:53 Temperature 97.9 F 97.2 F L 97.4 F L Pulse Rate 69 78 100 Respiratory Rate 16 16 16 Blood Pressure 90/49 L 101/67 90/47 L Pulse Oximetry 100 100 99 Oxygen Delivery Room Air Simple Face Mask Oxygen Flow Rate 8 08/22/24 11:05 08/22/24 11:20 08/22/24 11:35 Temperature Pulse Rate 111 H 101 H 88 Respiratory Rate 15 100 H 15 Blood Pressure 101/65 112/68 106/71 Pulse Oximetry 100 100 100 Oxygen Delivery Simple Face Mask Room Air Room Air Oxygen Flow Rate 8 08/22/24 11:50 08/22/24 12:02 08/22/24 12:15 Temperature 98.1 F 96.9 F L Pulse Rate 81 74 78 Respiratory Rate 17 17 14 Blood Pressure 105/71 101/70 101/65 Pulse Oximetry 98 99 100 Oxygen Delivery Room Air Room Air Oxygen Flow Rate 08/22/24 12:30 Temperature 97.3 F L Pulse Rate 91 Respiratory Rate 16 Blood Pressure 115/92 H Pulse Oximetry 100 Oxygen Delivery Oxygen Flow Rate Exam 2 Const: General: comfortable and no acute distress Neck: Neck: supple and no JVD Resp: Effort & Inspection: normal respiratory effort Auscultation: clear to auscultation bilaterally Cardio: Rate: regular rate Rhythm: regular rhythm GI: Inspection: non-distended Other: Lap sites without s/s of hematoma or dehiscence. Skin: General skin exam: normal color, no rashes or lesions noted and no erythema Lesions: no lesions noted Rashes: no rashes noted Wounds: no wounds Neuro: General: gait normal Speech: normal speech Motor exam (neuro): 5 /5 motor strength present throughout and Normal motor muscle tone present throughout Sensory Exam: normal sensation Extrem: General: normal to inspection and no edema Psych: Mental Status: mental status grossly normal Affect: normal affect Results Labs 08/22/24 07:07 08/22/24 07:07 Labs: Short CBC 08/22/24 Range/Units 07:07 WBC 3.8 L (4.5-10.0) K/mm3 Hgb 13.1 (12.0-15.0) g/dL Hct 39.2 (37.0-47.0) % Plt Count 181 (150-375) k/mm3 BMP 08/22/24 07:07 Sodium 141 Potassium 4.1 Chloride 108 H Carbon Dioxide 27 BUN < 2 L Creatinine 0.66 L Glucose 97 Calcium 8.9 Liver Function 08/22/24 Range/Units 07:07 Total Bilirubin 0.9 (0.2-1.3) mg/dL AST 63 H (14-36) U/L ALT 273 H (6-35) U/L Alkaline Phosphatase 69 (38-126) U/L Albumin 3.9 (3.5-5.1) g/dL Quality VTE Prophylaxis VTE prophylaxis: mechanical ordered
[2024-08-22] MEDS: ONDANSETRON INJ 4 MG/2 ML VIAL IV PUSH (13:40)
[2024-08-22] MEDS: ACETAMINOPHEN 500 MG TABLET 1000 MG PO (14:52)
--- NOTE | 2024-08-23 15:58 | P.DS_ITS ---
DS: Admitting Diagnosis Discharge Date 08/22/24 Admitting Diagnosis Acute cholecystitis and elevated liver enzymes DS: Discharge Diagnosis Discharge Diagnosis Plan Acute cholecystitis and elevated liver enzymes, probable passage of common bile duct stone DS: Summary Hospital Course Reason for hospitalization: Right upper quadrant epigastric abdominal pain associated with elevated liver enzymes and presence of cholelithiasis. Hospital Course: Patient is a 28-year-old female who presented to the emergency room with severe epigastric right upper quadrant abdominal pain. On CT scan she was noted to have dilated gallbladder with some thickening of the gallbladder wall suggestive of either at least chronic cholecystitis or early acute cholecystitis. Patient had moderately elevated AST and ALT as well as total bilirubin of 1.4. She says was admitted to the hospital on started on IV antibiotics for empiric treatment for acute cholecystitis. Her white blood cell count was normal. Next day repeat labs were done and her liver enzymes were further elevated. Her total bili had increased to 2.4. White blood count still normal. Her pain had resolved and she was hungry. Abdominal ultrasound was performed showing cholelithiasis without obvious evidence of acute cholecystitis or pericholecystic fluid. Common bile duct was 8mm in diameter. An MRCP was ordered to evaluate for common bile duct stone. This was done the next day and this showed no evidence of common bile duct stone and her liver enzymes had all rapidly decreased. It was presumed that she likely passed a common bile duct stone. The patient was then made NPO and then the next morning she was then taken to the operating room she underwent uncomplicated laparoscopic cholecystectomy. Postoperatively in recovery room her course was uneventful and she was transferred up to the surgical floor for routine postoperative care. Long surgical floor she was able to get up and ambulate to the bathroom without difficulty. She would tolerate some liquids and advanced to solid food which she tolerated well. Her pain was well controlled only on oral pain medications. Her incisions were dry and dressed. On the evening of surgery she was doing well and was discharged home in the care of her family in improved condition. Status at Discharge Functional status at discharge: independent ambulation Overall status at discharge: patient is back to baseline Time Spent with Patient Time attestation: Total time spent providing and/or coordinating discharge services: Time spent: Less than 30 minutes Exam GI: Other: Soft and nondistended. Port site incisions in place without evidence of any bleeding or wound complications. Expected tenderness at the port sites. DS: Data Data Completed and Pending Completed studies during hospitalization: Pending at discharge 08/22/24 10:15 Surgical [PTH] Routine Discharge Plan Discharge Attending physician on discharge: Darshan Mitchell Consulting providers: Belia Gordillo; Perez Jin; Gurpreet Pelaez V.; Amrik Lawton Discharging Clinician: Darshan Mitchell Anticipated Discharge Date/Time: 08/22/24 11:00 Patient Disposition: Home, Self-Care Activity: as tolerated Diet: as tolerated Wound Care Instructions: other - see discharge instructions Discharge Instructions: May discharge home when stable. Follow up with Dr. Mitchell in the office in 2 weeks. Patient to call [phone] for an appointment. May shower in 24hours but do not soak incisions under water for 2 weeks. No lifting more than 10 to 15 lb for 2 weeks. May advance diet as tolerated. No driving for at least 3 days or until no longer taking any narcotic pain medication. Resume all home medications. Prescription for narcotic pain medicines will be sent to the patient's pharmacy if needed. May use Tylenol and/or ibuprofen in addition to or in place of narcotic pain medications for postoperative pain. Patient Instructions: Antibiotic Form, Cholecystitis (GEN), Gallstones (GEN), Laparoscopic Cholecystectomy (GEN) Patient Language: Uzbek Stand Alone Forms: General Discharge Information Follow-up/Referrals: Belia Gordillo, INTELLIGENCE CONSULTANT [Advanced Practice Nurse] - Darshan Mitchell MD [Physician] - Discharge Medications: New hydrocodone-acetaminophen 5-325 mg tablet 1 - 2 tablet PO Q4H PRN (Reason: pain) Qty: 15 0RF Continued Mounjaro 2.5 mg/0.5 mL pen injector 2.5 mg SUBCUT WEEKLY Date of admission: 08/20/24 05:35 Primary Care Provider: Ronit,Saskia Blake Admitting Provider: Darshan Mitchell Attending physician on admission: Estrella Rouse Condition: Stable
== END 2024-08-22 16:45 | disposition home or self-care (01) ==
LOC: ANHED 08-20 05:35 → ANH3MEDSUR 08-20 07:24
PROVIDERS: General Practice; Nurse Practitioner Acute Care; Nurse Practitioner Family; Admitting Provider Surgery; Emergency Provider Student in an Organized Health Care Education/Training Program; PCP Family Medicine; Visit Provider Nurse Practitioner Adult Health
PROC: 0FT44ZZ Resection of Gallbladder, Percutaneous Endoscopic Approach (ICD-10-PCS; CPT 47562; principal; 2024-08-22 09:00)
DX: K80.10 Calculus of gallbladder with chronic cholecystitis without obstruction (principal); E11.65 Type 2 diabetes mellitus with hyperglycemia; E87.6 Hypokalemia; R74.01 Elevation of levels of liver transaminase levels; Z79.85 Long-term (current) use of injectable non-insulin antidiabetic drugs
CPT/HCPCS: 47562; 36415; 74177; 74183; 76376; 76705; 80053; 81001; 81025; 82948; 83690; 83735; 85025; 85027; 86850; 86900; 86901; 88304; 96361; 96365; 96366; 96367; 96375; 96376; 99285; A9270; A9577; G0378; J1100; J1885; J2003; J2004; J2250; J2270; J2405; J2470; J2543; J2704; J3010; J3480; J7030; J7042; J7120; Q9967